=== PATIENT | male | born 1930 | race Caucasian/White ===

== ENCOUNTER 2017-03-02 18:32 | Inpatient (IN) ==
--- NOTE | 2017-03-02 19:02 | Emergency Department Note ---
Lower Extremity Injury HPI - General Chief Complaint: Extremity Injury, Lower Stated Complaint: r hip fx, fall Time Seen by Provider: 03/02/17 18:53 Source: patient, EMS Mode of arrival: EMS Limitations: physical limitation - History of Present Illness HPI Narrative: Patient transferred from outside hospital, [place] Fracture intertrochanteric of the right hip. Therapeutic on Coumadin. No other injury. At baseline chronically on prednisone for COPD. - Related Data Home Medications Medication Instructions Recorded Confirmed Acetaminophen/Diphenhydramine 1 tab PO HSP PRN 03/02/17 03/02/17 [Tylenol Pm] Allopurinol [Zylopriim] 300 mg PO DAILY 03/02/17 03/02/17 Fluticasone Propionate [Flonase] 1 spray NS DAILY 03/02/17 03/02/17 Metoprolol Succinate [Toprol Xl] 25 mg PO HS 03/02/17 03/02/17 Simvastatin [Zocor] 40 mg PO HS 03/02/17 03/02/17 Warfarin [Coumadin] 2.5 mg PO DAILY 03/02/17 03/02/17 predniSONE [Prednisone] 5 mg PO DAILY 03/02/17 03/02/17 Allergies Allergy/AdvReac Type Severity Reaction Status Date / Time Beta-Blockers Allergy Verified 03/02/17 18:39 (Beta-Adrenergic Bloc Niacin Preparations Allergy Verified 03/02/17 18:39 Review of Systems All systems ED: reviewed and negative except as stated. Past Medical History - Past Medical History Attestation: Yes: The following information was validated with the patient. Medical history: Reports: atrial fibrillation (on Coumadin), COPD (steroid dependent), coronary artery disease Surgical history ED: Reports: coronary bypass (CABG), other (prior right femur fracture with osteomyelitis) Family history: Reports: non-contributory - Social History smoking status: Former smoker Physical Exam - General Limitations: physical limitation General appearance: alert, in no apparent distress - Head Head exam: atraumatic - Eye Eye exam: Present: normal appearance - ENT ENT exam: normal exam, mucous membranes moist - Neck Neck exam: Present: normal inspection - Chest Chest inspection: Present: normal inspection - Respiratory Respiratory exam: Present: normal lung sounds bilaterally. Absent: respiratory distress - Cardiovascular Cardiovascular exam: Present: regular rate, irregular rhythm. Absent: systolic murmur - Abdominal Exam Abdominal exam: Present: soft. Absent: tenderness - exam: Present: normal inspection, other ([place] catheter in place) - Extremities Exam Extremities exam: Present: other (shortened right leg; intact right leg neurovascular) - Back Exam Back exam: Present: normal inspection - Neurological Exam Neurological exam: Present: alert, oriented X3 - Psychiatric Psychiatric exam: Present: normal affect Course Vital Signs Temperature 98.1 F 03/02/17 18:33 Pulse Rate 126 H 03/02/17 18:33 Respiratory Rate 24 03/02/17 18:33 Blood Pressure 104/90 03/02/17 18:33 Pulse Oximetry (%) 88 L 03/02/17 18:33 Temperature 98.1 F 03/02/17 18:33 Pulse Rate 126 H 03/02/17 18:33 Respiratory Rate 24 03/02/17 18:33 Blood Pressure 104/90 03/02/17 18:33 Pulse Oximetry (%) 88 L 03/02/17 18:33 Extremity Injury, Lower - Medical Records Medical records reviewed: Yes I reviewed the patient's medical records. labs reviewed from outside, normal CBC, creatinine of 1.5, normal electrolytes, normal albumin; therapeutic INR 2.2 - EKG Data EKG attestation: Yes I reviewed and interpreted this EKG. Rhythm: A. flutter Disposition Clinical Impression: Fracture of hip, History of Coumadin therapy Summary: hospitalist admitting, medically stable Disposition: Xfer As Inpt ([facility]) Condition: Good
[2017-03-02] MEDS ORDERED: HYDROmorphone 2 MG/ML SYRINGE IV PRN ×2 (19:19→20:00)
[2017-03-02] MEDS ORDERED: NALOXONE HCL 0.4 MG/ML VIAL IV PRN ×2 (20:00→21:32)
[2017-03-02] MEDS ORDERED: MAGNESIUM HYDROXIDE 30 ML ORAL.SUSP PO PRN ×2 (20:00→21:32)
[2017-03-02] MEDS ORDERED: ONDANSETRON 4 MG/2 ML VIAL IV PRN ×2 (20:00→21:32)
[2017-03-02] MEDS ORDERED: HYDROcodone/APAP 5/325MG TABLET PO PRN ×2 (20:00→21:32)
[2017-03-02] MEDS ORDERED: FAMOTIDINE/PF 20 MG/2 ML VIAL IV SCH (21:00)
[2017-03-02] MEDS ORDERED: VANCOMYCIN 1,000 MG in 0.9 % SODIUM CHLORIDE 250 ML IV ONE ×2 (21:17→21:32)
[2017-03-02] MEDS ORDERED: VANCOMYCIN PER PHARMACY IV ONE ×2 (21:17→21:32)
[2017-03-02] MEDS ORDERED: DILTIAZEM 25 MG/5 ML VIAL IV ONE ×2 (21:23→21:32)
[2017-03-02] MEDS ORDERED: methylPREDNISolone SOD SUCC 125 MG/2 ML VIAL IV SCH (21:30)
[2017-03-02] MEDS ORDERED: CEFEPIME 2 GM in DEXTROSE 5% IN WATER 50 ML IV SCH (21:30)
[2017-03-02] MEDS ORDERED: LORazepam 2 MG/ML VIAL IV PRN (21:31)
--- NOTE | 2017-03-02 21:41 | Internal Med History&Physical ---
Medical - H&P: HPI Patient information: Note initiated : 03/02/17 at 9:32 pm Service Date, if different from initiated Date: [] Patient: Trey Stock 86 y/o M admitted on 03/02/17 for r hip fx, fall. Chief Complaint: [] History of present illness: Mr. Stock is a 86 year old male with h/o copd, on chr prednisone, CAD s/p CABG 25 yrs ago, Afib/ Flutter on coumadin and toporol presented to outside hospital ER with a mechanical fall. The patient reports that he was changing a bin in his yard, likely moving it to the truck, when he slipped and fell. He was taken to the ER and was noted to have right femur fracture. The patient was then transported to the [facility] ER. His labs were reported to be unremarkable besides creat of 1.5, and HR 125 in flutter which was thought to be due to pain from the fracture. The patient was admitted to medical floors for further management. On my evaluation the patient denies any other complaints, notes chr sob on activity, denies any fever or chills. The patient however clinically appeared tachypenic, and did not answer my questions coherently. The patients oxygen level was log and on RA dropped as low as 82%. We got an ABG and noted his PH 7.29/ 61/53, the exam also showed lee prolonged exp phase, and lee wheezing with decreased air entry. Outside labs review show that he has wbc count of 15, h/u 14.8 45, plat 230, creat 1.5BUN 22, GFR 52 The patient x ray chest done shows lee infiltratres, as well as rigut upper lobe infiltrate. No previous X ray to compare. Blood cultures drawn, IV antibiotics started, procalcitonin started. Repeat labs ordered. I do not think the patient is stable to under go any procedure at this time, will discuss with Anesthesia regarding his periop risk in AM. The patient otherwise does not endorse any chest pains, dizziness, headache, loss of concousness or injury to the head. Review of systems: CONSTITUTIONAL: No weight loss, fever, chills, weakness or fatigue. HEENT: Eyes: No visual loss, blurred vision, double vision or yellow sclerae. Ears, Nose, Throat: No hearing loss, sneezing, congestion, runny nose or sore throat. SKIN: No rash or itching. CARDIOVASCULAR: No chest pain, chest pressure or chest discomfort. No palpitations or edema. RESPIRATORY: chr shortness of breath GASTROINTESTINAL: No nausea, vomiting or diarrhea or constipation. No abdominal pain or blood in stools No Olivia. GENITOURINARY: Denies Burning on urination. Blood in urine, or foul smelling urine NEUROLOGICAL: No headache, dizziness, syncope, paralysis, tremors, numbness or tingling in the extremities. No change in bowel or bladder control. MUSCULOSKELETAL: No muscle, back pain, joint pain or stiffness. HEMATOLOGIC: No bleeding or bruising. No enlarged nodes PSYCHIATRIC: No depression or anxiety. ENDOCRINOLOGIC: No reports of sweating, cold or heat intolerance. No polyuria or polydipsia. ALLERGIES: No hives, eczema or rhinitis. Skin: No rash, no jaundice, cyanosis or pallor. Medical - H&P: PMH Medical history: COPD HTN HLD CAD AFib Surgical history: CABG 25 yrs ago Pertinent family history: unable to review, due to non coherent answers at times. Social history: lives with ex smoker no etoh no recreational drugs. Medical - H&P: Meds Home Medications Medication Instructions Recorded Confirmed Type Acetaminophen/Diphenhydramine 1 tab PO HSP PRN 03/02/17 03/02/17 History [Tylenol Pm] Allopurinol [Zylopriim] 300 mg PO DAILY 03/02/17 03/02/17 History Fluticasone Propionate [Flonase] 1 spray NS DAILY 03/02/17 03/02/17 History Metoprolol Succinate [Toprol Xl] 25 mg PO HS 03/02/17 03/02/17 History Simvastatin [Zocor] 40 mg PO HS 03/02/17 03/02/17 History Warfarin [Coumadin] 2.5 mg PO DAILY 03/02/17 03/02/17 History predniSONE [Prednisone] 5 mg PO DAILY 03/02/17 03/02/17 History Allergies Allergy/AdvReac Type Severity Reaction Status Date / Time Beta-Blockers Allergy Verified 03/02/17 18:39 (Beta-Adrenergic Bloc Niacin Preparations Allergy Verified 03/02/17 18:39 Medical - H&P: Exam - Constitutional Vitals: Temp Pulse Resp BP Pulse Ox 98.0 F 125 H 24 117/83 95 03/02/17 20:00 03/02/17 20:10 03/02/17 20:00 03/02/17 20:10 03/02/17 20:10 Exam: GENERAL: The patient is a well-developed, well-nourished in mild distress. Is alert and oriented x2 VITAL SIGNS: Reviewed and as noted elsewhere. HEENT: Head is normocephalic and atraumatic. Extraocular muscles are intact. Pupils are equal, round, and reactive to light. Nares appeared normal. Mouth appears any without lesions. Mucous membranes are moist. NECK: Normal to inspection, Supple, No lymphadenopathy or thyromegaly. LUNGS: Air entry equal on both sides, but diminished, prolonged exp phase, lee exp wheezing noted. HEART: tachycardic rate, regular rhythm (flutter) , S1 and S2 heard, No Gross murmur heard. ABDOMEN: Soft, nontender, and nondistended. Positive bowel sounds. No hepatosplenomegaly was noted. EXTREMITIES: No cyanosis, clubbing, rash, lesions or edema. NEUROLOGIC: Cranial nerves II through XII are grossly intact. Motor and Sensory System Grossly Intact PSYCHIATRIC: Normal affect, Normal Mood. Appropriate Behavior. SKIN: No ulceration or wounds noted, No jaundice, No rash noted. Medical - H&P: Reslt - Labs Labs: labs from outside facility reviewd, ABG reviewed and noted in hpi shows acute resp acidosis. chest x ray reviewed by me, lee infiltraets in lower lobes, right upper lobe infiltrate. Medical - H&P: A/P - Narrative A/P Narrative: a/p Acute hypoxic Hypercapnic resp failure: Due to copd exacerbation, likely PNA, old X ray not available to compare. BIPAP for now. monitor abg. Pneumonia: high risk for pseudomonas given his use of prednisone, IV vancomycin and Cefepime for now, Blood cultures, mycoplasma, urine legionella, sputume cultures. COPD exacerbation: IV steroids, Duonebs q 4 hrs, BIPAP treatment. Atrial Flutter: BP stable, trial of IV cardizem to see if it lowers HR, If pt drops bp, will use amiodarone. Acute kidney injury: Creat is 1.5, monitor for now, closely watch urine output, IV fluids if patient able to tolerate. Anticoagulation: On coumadin, dose held, INR therapeutic, will give vit K Right hip fracture: Ortho following, will need operative intervention. Will discuss risk with anesthesia given his copd/ pna status. DVT : will start on hep once INR is subtherapeutic Diet Cardiac Code full Try to obtain old records from his provider Medical - H&P: Qual - VTE Deep Vein Thrombosis/Pulmonary Embolism Present on Admission: No
[2017-03-02] MEDS ORDERED: CEFEPIME 1 GM VIAL ONE (21:43)
[2017-03-02] MEDS ORDERED: methylPREDNISolone SOD SUCC 125 MG/2 ML VIAL ONE (21:43)
[2017-03-02] MEDS: IPRATROPIUM/ALBUTEROL 3 ML AMPUL.NEB NEB SCH (21:48)
[2017-03-02] MEDS ORDERED: VANCOMYCIN 500 MG VIAL ONE (22:03)
[2017-03-02] MEDS ORDERED: 0.9 % SODIUM CHLORIDE 500 ML IV ONE (22:11)
[2017-03-02] MEDS: methylPREDNISolone SOD SUCC 125 MG/2 ML VIAL IV SCH (22:19)
[2017-03-02 22:28] LABS: Basophils # (Auto) 0.1 K/mcL (0.0-0.3); Basophils % (Auto) 0.3 % (0.0-2.0); Eosinophils # (Auto) 0.1 K/mcL (0.0-0.7); Eosinophils % (Auto) 0.3 % (0.0-7.0); Granulocytes % (Auto) 84.6 % (38.0-78.0); Lymphocytes # (Auto) 1.2 K/mcL (1.5-4.8); Lymphocytes % (Auto) 3.9 % (15.5-49.0); Mean Cell Volume 97.3 fL (80.0-100.0); Mean Corpuscular HGB Conc 31.8 g/dL (31.0-36.0); Mean Corpuscular Hemoglobin 30.9 pg (26.0-34.0); Monocytes # (Auto) 3.4 K/mcL (0.1-0.9); Monocytes % (Auto) 10.9 % (1.0-12.0); Platelet Count 242 K/mcL (140-440); Red Cell Distribution Width 13.8 % (11.5-14.5)
[2017-03-02 22:37] LABS: ALT/SGPT 24 U/l (0-40); Albumin 4.4 gm/dL (3.2-5.2); Albumin/Globulin Ratio 1.8 (1.0-2.3); Alkaline Phosphatase 77 U/L (39-117); Bilirubin,Direct 0.2 mg/dL (0.0-0.3); Blood Urea Nitrogen 24 mg/dl (8-23); Gamma Glutamyl Transpeptidase 58 U/L (8-61); Magnesium 1.4 mg/dL (1.6-2.5); Uric Acid 5.3 mg/dL (2.5-8.0)
[2017-03-02] MEDS ORDERED: MAGNESIUM SULFATE 2 GM/50 ML BAG IV ONE ×2 (22:43→23:02)
[2017-03-02] MEDS: SIMVASTATIN 40 MG TABLET PO SCH (22:54)
[2017-03-02] MEDS: CEFEPIME 2 GM in DEXTROSE 5% IN WATER 50 ML IV SCH (22:54)
[2017-03-02] MEDS ORDERED: IPRATROPIUM/ALBUTEROL 3 ML AMPUL.NEB NEB SCH (23:00)
[2017-03-02] MEDS: 0.9 % SODIUM CHLORIDE 1,000 ML IV SCH (23:01)
[2017-03-02] MEDS: FAMOTIDINE/PF 20 MG/2 ML VIAL IV SCH (23:07)
[2017-03-02] MEDS: LORazepam 2 MG/ML VIAL IV PRN (23:14)
[2017-03-02] MEDS ORDERED: 0.9 % SODIUM CHLORIDE 1,000 ML IV ONE (23:46)
[2017-03-03] MEDS: HYDROmorphone 2 MG/ML SYRINGE IV PRN ×7 (00:12→22:29)
[2017-03-03] MEDS: IPRATROPIUM/ALBUTEROL 3 ML AMPUL.NEB NEB SCH ×6 (03:15→23:16)
[2017-03-03] MEDS: methylPREDNISolone SOD SUCC 125 MG/2 ML VIAL IV SCH ×3 (05:41→21:58)
[2017-03-03 06:18] LABS: Basophils # (Auto) 0 K/mcL (0.0-0.3); Basophils % (Auto) 0 % (0.0-2.0); Eosinophils # (Auto) 0.1 K/mcL (0.0-0.7); Eosinophils % (Auto) 0.4 % (0.0-7.0); Granulocytes % (Auto) 93.5 % (38.0-78.0); Lymphocytes # (Auto) 0.7 K/mcL (1.5-4.8); Lymphocytes % (Auto) 2.5 % (15.5-49.0); Mean Cell Volume 95.7 fL (80.0-100.0); Mean Corpuscular HGB Conc 33.3 g/dL (31.0-36.0); Mean Corpuscular Hemoglobin 31.9 pg (26.0-34.0); Monocytes % (Auto) 3.6 % (1.0-12.0); Platelet Count 203 K/mcL (140-440); RBC 4.79 M/mcL (4.50-5.90); Red Cell Distribution Width 13.4 % (11.5-14.5)
[2017-03-03 06:29] LABS: ALT/SGPT 21 U/l (0-40); Albumin 3.7 gm/dL (3.2-5.2); Albumin/Globulin Ratio 1.4 (1.0-2.3); Alkaline Phosphatase 70 U/L (39-117); Bilirubin,Direct < 0.2 mg/dL (0.0-0.3); Blood Urea Nitrogen 28 mg/dl (8-23); Gamma Glutamyl Transpeptidase 56 U/L (8-61); Magnesium 2.2 mg/dL (1.6-2.5); Uric Acid 5.4 mg/dL (2.5-8.0)
[2017-03-03] MEDS ORDERED: FUROSEMIDE 40 MG/4 ML VIAL IV ONE ×2 (06:46→17:34)
[2017-03-03] MEDS ORDERED: DEXTROSE 50% 50 ML VIAL IV ONE (06:51)
[2017-03-03] MEDS ORDERED: SODIUM POLYSTYRENE SULFONATE 15 GM/60 ML SUSPENSION PO ONE (06:51)
[2017-03-03] MEDS ORDERED: CALCIUM GLUCONATE 4.65 MEQ in DEXTROSE 5% IN WATER 50 ML IV ONE (06:52)
[2017-03-03] MEDS ORDERED: INSULIN REGULAR, HUMAN 1 UNIT/0.01 ML UNIT IV ONE (06:52)
[2017-03-03] MEDS ORDERED: 0.9 % SODIUM CHLORIDE 500 ML IV ONE ×2 (06:55→07:57)
[2017-03-03] MEDS ORDERED: VANCOMYCIN PER PHARMACY IV SCH (07:15)
--- NOTE | 2017-03-03 07:20 | XRay Report ---
CLINICAL INFORMATION: COPD COMPARISON: None. FINDINGS: The heart is within limits of normal in size. Mediastinum is unremarkable. Pulmonary vessels are slightly distended. COPD changes noted. There is moderate interstitial disease in the right mid and lower lung and the left lower lung. IMPRESSION: Moderate interstitial disease in the right mid and lower and left lower lung.Suspect edema from atypical CHF. Superimposed infiltrate is also possible. If there is history and exam support for CHF, consider diuretic trial and repeat two view upright chest x-ray to reexamine the lung bases to assess clearance of atypical edema. Obviously , if this pattern persists, after diuresis, that it likely represents infiltrate. Interpreted and Authenticated by: Joe Lafleur 03/03/17
[2017-03-03 07:47] LABS: Blood Urea Nitrogen 31 mg/dl (8-23)
[2017-03-03] MEDS: 0.9 % SODIUM CHLORIDE 1,000 ML IV SCH ×5 (08:22→20:07)
[2017-03-03] MEDS ORDERED: ALLOPURINOL 300 MG TABLET PO SCH (09:00)
[2017-03-03] MEDS ORDERED: FLUTICASONE PROPIONATE SPRAY.NAS NS SCH (09:00)
[2017-03-03] MEDS: CEFEPIME 2 GM in DEXTROSE 5% IN WATER 50 ML IV SCH ×2 (09:01→20:54)
[2017-03-03] MEDS: FAMOTIDINE/PF 20 MG/2 ML VIAL IV SCH ×2 (09:01→20:54)
[2017-03-03] MEDS: FLUTICASONE PROPIONATE SPRAY.NAS NS SCH ×2 (09:01→10:23)
[2017-03-03] MEDS: ALLOPURINOL 300 MG TABLET PO SCH ×2 (09:02→10:24)
--- NOTE | 2017-03-03 10:24 | Internal Med Progress Note ---
Medical - PN: Subj Patient information: Note initiated : 03/03/17 at 10:21 am Service Date, if different from initiated Date: [] Patient: Trey Stock a 86 y/o M admitted on 03/02/17 for r hip fx, fall. Chief Complaint: [] Interval history: Mr. Stock is a 86 year old male with h/o copd, on chr prednisone, CAD s/p CABG 25 yrs ago, Afib/ Flutter on coumadin and toporol presented to outside hospital ER with a mechanical fall. The patient reports that he was changing a bin in his yard, likely moving it to the truck, when he slipped and fell. He was taken to the ER and was noted to have right femur fracture. The patient was then transported to the [facility] ER. His labs were reported to be unremarkable besides creat of 1.5, and HR 125 in flutter which was thought to be due to pain from the fracture. The patient was admitted to medical floors for further management. On my evaluation the patient denies any other complaints, notes chr sob on activity, denies any fever or chills. The patient however clinically appeared tachypenic, and did not answer my questions coherently. The patients oxygen level was log and on RA dropped as low as 82%. We got an ABG and noted his PH 7.29/ 61/53, the exam also showed lee prolonged exp phase, and lee wheezing with decreased air entry. Patient xray suggestive of pna, ? CHF, admitted to MICU for acute resp failure, copd exacerbation. 03/03 : Pt seen examined, overnight events noted. Pt remains on BIPAP, with good tidal volume, mental status ok, but patient still is acidotic with co2 retention. His ABG this AM Was worse than last night, changes to bipap made. pt also noted to have oligouria, worsening kidney function and hyperkalemia. Nephrology consulted, renal usg ordered. Pt remains tachycardic in flutter. the patient labs show worsening lecocytosis 15 K in [place], 30K last night, He was on IV vancom and cefepime, MRSA screen was neg, vanco stopped. Zithromax added for atypical coverage given h/o copd. Pt cultures are neg so far. Not cleared for surgery given acute resp failure. was able to review old echo and old notes, normal lvef noted, and he seems to be intermittently dependent on oxygen from his Copd stand point. Pertinent ROS: Denies headache, dizziness Denies chest pain, palpitations Denies cough or shortness of breath (pt denies any symptoms, on bipap) Denies abdominal pain, nausea or vomiting. - Constitutional Vitals: Vital Signs Temp Pulse Resp BP Pulse Ox 98.8 F 106 H 15 111/71 92 03/03/17 07:00 03/03/17 09:48 03/03/17 10:00 03/03/17 10:00 03/03/17 10:00 Period Temp Pulse Resp BP Sys/Gomez Pulse Ox Last 24 Hr 97.6 F-98.8 F 82-129 9-25 93-133/56-99 76-96 Intake and Output 03/02/17 03/03/17 03/03/17 21:59 05:59 13:59 Intake Total 1850 / 1850 620 / 620 Output Total 275 / 275 235 / 235 Balance 1575 / 1575 385 / 385 Weight 193 lb 8 oz Intake & Output: Intake & Output 03/02/17 03/03/17 03/03/17 21:59 05:59 13:59 Intake Total 1850 / 1850 620 / 620 Output Total 275 / 275 235 / 235 Balance 1575 / 1575 385 / 385 Weight 193 lb 8 oz Intake: IV 1550 / 1550 560 / 560 Sodium Chloride 0.9% 1, 1000 / 1000 000 ml @ Wide Open IV BOLUS ONE Rx#:[id number] Sodium Chloride 0.9% 500 500 / 500 500 / 500 ml @ Wide Open IV BOLUS ONE Rx#:[id number] Calcium Gluconate 4.65 60 / 60 Meq In Dextrose 5% in Water 50 ml @ 100 mls/hr IV ONCE ONE Rx#:[id number] MAGNESIUM SULFATE 2 gm In 50 / 50 50 ml As IV .STK-MED ONE Rx#:[id number] Oral 60 / 60 IV - Manual Only 300 / 300 Output: Urine Catheter Amount 275 / 275 235 / 235 Exam: Constitutional; Afebrile, cooperative, alert, not in distress. Eyes- No icterus, , No periorbital swelling Ears- Ext ear normal, hearing normal to conversation. Neck- Midline trachea, supple Respiratory system: Air Entry equal on both sides, lee exp mild wheezing, prolonged exp phase. CVS- Rate tachycardic, rhythm regular, Abdomen- Soft nontender abdomen, no organomegaly, no tenderness, no guarding or rigidity, INDIRECT SALES EXEC- AOOx2, moving all extremities, no gross focal deficit noted. Medical - PN: Obj Da - Labs CBC & Chem 7: 03/03/17 04:15 03/03/17 06:46 Labs: Abnormal Lab Results 03/03/17 03/03/17 03/03/17 06:46 04:15 04:15 WBC Gran % Lymph % (Auto) Gran # Lymph # [place] # PT 24.2 H INR 2.1 H VBG Lactic Acid Sodium 132 L Potassium 5.8 H 6.3 H* Chloride Carbon Dioxide 21 L 18 L Anion Gap BUN 31 H 28 H Creatinine 1.8 H 1.7 H Glucose 172 H 151 H Calcium 8.3 L 8.4 L Magnesium Lactate Dehydrogenase 304 H Triglycerides 337 H 03/03/17 03/02/17 03/02/17 04:15 22:35 21:20 WBC 26.4 H Gran % 93.5 H Lymph % (Auto) 2.5 L Gran # 24.6 H Lymph # 0.7 L Mclean # 1.0 H PT INR VBG Lactic Acid 3.4 H Sodium Potassium 5.3 H Chloride 92 L Carbon Dioxide Anion Gap 17.0 H BUN 24 H Creatinine 1.5 H Glucose 155 H Calcium Magnesium 1.4 L Lactate Dehydrogenase 339 H Triglycerides 430 H 03/02/17 03/02/17 21:20 21:20 WBC 31.0 H* Gran % 84.6 H Lymph % (Auto) 3.9 L Gran # 26.2 H Lymph # 1.2 L Mclean # 3.4 H PT 23.8 H INR 2.1 H VBG Lactic Acid Sodium Potassium Chloride Carbon Dioxide Anion Gap BUN Creatinine Glucose Calcium Magnesium Lactate Dehydrogenase Triglycerides Meds: Medications Acetaminophen/Hydrocodone Bitart ([place] 5/325mg) 1 tab PO Q4HP PRN PRN Reason: Pain Albuterol/Ipratropium (Duoneb) 3 ml NEB Q4HRT [facility] Last Admin: 03/03/17 06:45 Dose: 3 ml Allopurinol (Zylopriim) 300 mg PO DAILY [facility] Last Admin: 03/03/17 09:02 Dose: 300 mg Famotidine (Pepcid) 20 mg IV Q12 [facility] Last Admin: 03/03/17 09:01 Dose: 20 mg Fluticasone Propionate (Flonase) 1 spray NS DAILY [facility] Last Admin: 03/03/17 09:01 Dose: 1 spr Hydromorphone HCl (Dilaudid) 0.5 mg IV Q1HP PRN PRN Reason: Pain Last Admin: 03/03/17 08:43 Dose: 0.5 mg Cefepime HCl 2 gm/ Dextrose 50 mls @ 100 mls/hr IV Q12H [facility] Last Admin: 03/03/17 09:01 Dose: 100 mls/hr Sodium Chloride (Sodium Chloride 0.9%) 1,000 mls @ 100 mls/hr IV .Q10H [facility] Last Admin: 03/03/17 08:22 Dose: Not Given Azithromycin 500 mg/ Dextrose 250 mls @ 250 mls/hr IV Q24H [facility] Stop: 03/05/17 11:29 Lorazepam (Ativan) 0.5 mg IV Q4-6HP PRN PRN Reason: ANXIETY/SEDATION Last Admin: 03/02/17 23:14 Dose: 0.5 mg Magnesium Hydroxide (Milk Of Magnesia) 30 ml PO DAILYP PRN PRN Reason: Constipation Methylprednisolone Sodium Succinate (Solu-Medrol) 62.5 mg IV Q8 [facility] Last Admin: 03/03/17 05:41 Dose: 62.5 mg Naloxone HCl (Narcan) 0.1 mg IV Q2MIN PRN PRN Reason: Opiate Reversal Ondansetron HCl (Zofran) 4 mg IV Q4HP PRN PRN Reason: Nausea And Vomiting Simvastatin (Zocor) 40 mg PO HS [facility] Last Admin: 03/02/17 22:54 Dose: Not Given Medical - PN: A/P - Time Spent With Patient Total time spent is greater than 50% in coordination of care (as documented) at patient's floor/unit and/or counseling patient: - Narrative A/P Narrative: a/p Acute hypoxic Hypercapnic resp failure: Due to copd exacerbation, PNA ( elevated wbc, procalcitonin high) , old X ray not available to compare. continue bipap, increase settings to 14/8 Fio2 30% Pneumonia:Cultures neg, MRSA screen neg, d/c vanco, continue cefepime, start zithromax in light of copd. COPD exacerbation: IV steroids, Duonebs q 4 hrs, BIPAP treatment. and zithromax. Hypomagnesemia: replace Atrial Flutter: BP stable, trial of IV cardizem helped, he did drop his bp somewhat but went back up again, monitor HR, repeat dose of cardizem, If BP drops again, start on amiodarone. Acute kidney injury: Creat is 1.8, with decreased urine output, hyperkalemia, IV fluids ongoing, Nephrology consulted, renal usg ordered. Hyperkalemia: Medically treated, Nephrology consulted, Kidneys responding to lasix. Anticoagulation: On coumadin, dose held, INR therapeutic, hold off on coumadin. Right hip fracture: Ortho following, will need operative intervention, pt will need to be stable first. . DVT : will start on hep once INR is subtherapeutic Diet Cardiac Code full Spent > 60mins providing critical care, managing bipap, reviewing ABG, Tele, adjusting medications. Medical - PN: Qual - VTE Deep Vein Thrombosis/Pulmonary Embolism Present on Admission: No
[2017-03-03] MEDS: LORazepam 2 MG/ML VIAL IV PRN ×3 (10:27→19:15)
[2017-03-03] MEDS: AZITHROMYCIN 500 MG in DEXTROSE 5% IN WATER 250 ML IV SCH (11:05)
[2017-03-03] MEDS ORDERED: 0.9 % SODIUM CHLORIDE 1,000 ML IV ONE (11:14)
[2017-03-03 11:21] LABS: ALT/SGPT 19 U/l (0-40); Albumin 3.5 gm/dL (3.2-5.2); Albumin/Globulin Ratio 1.3 (1.0-2.3); Alkaline Phosphatase 62 U/L (39-117); Bilirubin,Direct < 0.2 mg/dL (0.0-0.3); Blood Urea Nitrogen 30 mg/dl (8-23); Gamma Glutamyl Transpeptidase 49 U/L (8-61); Magnesium 1.9 mg/dL (1.6-2.5); Uric Acid 5.3 mg/dL (2.5-8.0)
--- NOTE | 2017-03-03 12:16 | XRay Report ---
CLINICAL INFORMATION: Shortness of breath COMPARISON: 03/02/2017 FINDINGS: Moderate cardiomegaly is unchanged. Sternotomy changes noted. Mediastinum is unremarkable. Pulmonary vessels have decreased and now only slightly distended. Moderate interstitial disease in the right mid and both lower lungs have decreased modestly. IMPRESSION: Decrease in interstitial disease in the right mid and both lower lung liu since yesterday with decreasing pulmonary vascular congestion most compatible with resolving atypical CHF Interpreted and Authenticated by: Joe Lafleur 03/03/17
--- NOTE | 2017-03-03 12:24 | XRay Report ---
CLINICAL INFORMATION: Hip fracture COMPARISON: 03/02/2017 FINDINGS: A mildly comminuted nondisplaced acute intertrochanteric fracture the right hip. Both SI and hip joint showing mild degenerative change. Urinary bladder catheter tip overlies the expected location central bladder. No soft tissue abnormalities IMPRESSION: Minimally comminuted, nondisplaced acute intertrochanteric fracture - right hip Interpreted and Authenticated by: Joe Lafleur 03/03/17
--- NOTE | 2017-03-03 13:14 | Ultrasound Report ---
CLINICAL INFORMATION: Renal failure COMPARISON: None. FINDINGS: Both kidneys are normal in size, position and configuration: The right is 10 x 6 cm as the left is 10 x 5.7 cm. Parenchyma is moderately echogenic and there is slight thinning of the renal cortex compatible with medical renal disease. No focal solid/cystic lesions or evidence of stone and no hydronephrosis. Arterial blood flow is grossly normal on color spectral Doppler [place] catheter in satisfactory position. No gross abnormality seen in the only partially filled urinary bladder IMPRESSION: Increased parenchymal echotexture compatible with medical renal disease. Interpreted and Authenticated by: Joe Lafleur 03/03/17
[2017-03-03 16:54] LABS: Vancomycin,Random 9.2 ug/ml
[2017-03-03] MEDS ORDERED: DILTIAZEM 25 MG/5 ML VIAL IV ONE (16:55)
--- NOTE | 2017-03-03 16:57 | Nephrology Consult Note ---
History of Present Illness - Reason for Consult Patient information: Note initiated : 03/03/17 at 4:54 pm Service Date, if different from initiated Date: [] Patient: Trey Stock 86 y/o M admitted on 03/02/17 for Right Hip Fracture, Fall. Chief Complaint: [] Consult date: 03/03/17 acute renal failure, hyperkalemia Requesting physician: Sanju Forman - Chief Complaint hip fracture - History of Present Illness Mr Stock is a 86 y/o white male with PMH of HTN, Atrial flutter, COPD and other medical issues who is admitted with right hip fracture Patient on admission was noted to have elevated white count, possible PNA, sepsis, acute hypoxic hypercarbic respiratory failure with acute renal failure and hyperkalemia. Given his acute renal failure and hyperkalemia renal is consulted Patient was apparently sick for 2 weeks prior to hospitalisation with cough, confusion. He had a fall at home trying to move garbage can and sustained right hip fracture and hence transferred here for further management patient was unable to provide clear history and most of the details obtained from review of medical records Patient is noted to have elevated white count, elevated lactate level, abnormal renal function and persistent acidosis he has been oliguric as well he is been managed with IVF, antibiotics and Bipap ventilation Review of Systems ROS unobtainable: due to mental status, other (on Bipap ventilation) All systems PM: reviewed and no additional remarkable complaints except as stated Past History Past medical history: HTN dyslipidemia COPD on prednisone CAD Aflutter on coumadin Past surgical history: s/p CABG Past family history: Not pertinent Past social history: lives with family in [place] no current addictions Medications and Allergies Home Medications Medication Instructions Recorded Confirmed Type Acetaminophen/Diphenhydramine 1 tab PO HSP PRN 03/02/17 03/02/17 History [Tylenol Pm] Allopurinol [Zylopriim] 300 mg PO DAILY 03/02/17 03/02/17 History Fluticasone Propionate [Flonase] 1 spray NS DAILY 03/02/17 03/02/17 History Metoprolol Succinate [Toprol Xl] 25 mg PO HS 03/02/17 03/02/17 History Simvastatin [Zocor] 40 mg PO HS 03/02/17 03/02/17 History Warfarin [Coumadin] 2.5 mg PO DAILY 03/02/17 03/02/17 History predniSONE [Prednisone] 5 mg PO DAILY 03/02/17 03/02/17 History Allergies Allergy/AdvReac Type Severity Reaction Status Date / Time Beta-Blockers Allergy Verified 03/02/17 18:39 (Beta-Adrenergic Bloc Niacin Preparations Allergy Verified 03/02/17 18:39 Exam - Vital Signs Vital signs: Temp Pulse Resp BP Pulse Ox 98.2 F 128 H 13 124/72 96 03/03/17 16:00 03/03/17 16:09 03/03/17 16:09 03/03/17 16:04 03/03/17 16:09 - General Appearance General appearance: appears started age, obese EENT: mucous membranes moist Neck: no JVD Respiratory: rales Cardiology: no rub, no edema, irregular rhythm Gastrointestinal: no tenderness, no guarding Integumentary: warm and dry Neurologic: no asterixis, confused Musculoskeletal: no erythema, no cyanosis Results - Lab Results 03/03/17 04:15 03/03/17 09:37 Most recent lab results Calcium 8.2 mg/dl (8.6-10.4) L 03/03/17 09:37 Phosphorus 4.1 mg/dL (2.7-4.5) 03/03/17 09:37 Magnesium 1.9 mg/dL (1.6-2.5) 03/03/17 09:37 Assessment and Plan (1) Acute renal failure Patient with acute renal failure s.creatinine 1.5-1.7 patient is oliguric also has hyperkalemia which improved with treatment persistent acidosis (metabolic and respiratory) metabolic from sepsis and renal failure agree with IV fluids, however would be cautious and monitor closely for signs of fluid overload he has received IV lasix this am, would repeat another dose if needed no urgent need for dialysis please dose meds to renal function avoid nephrotoxic medications monitor I/O, renal function Will follow closely Status: Acute
[2017-03-03 18:31] LABS: Basophils # (Auto) 0 K/mcL (0.0-0.3); Basophils % (Auto) 0 % (0.0-2.0); Eosinophils # (Auto) 0 K/mcL (0.0-0.7); Eosinophils % (Auto) 0 % (0.0-7.0); Granulocytes % (Auto) 94.4 % (38.0-78.0); Lymphocytes # (Auto) 0.4 K/mcL (1.5-4.8); Lymphocytes % (Auto) 2.1 % (15.5-49.0); Mean Cell Volume 98.3 fL (80.0-100.0); Mean Corpuscular HGB Conc 32.1 g/dL (31.0-36.0); Mean Corpuscular Hemoglobin 31.6 pg (26.0-34.0); Monocytes # (Auto) 0.7 K/mcL (0.1-0.9); Monocytes % (Auto) 3.5 % (1.0-12.0); Platelet Count 165 K/mcL (140-440); RBC 3.97 M/mcL (4.50-5.90); Red Cell Distribution Width 14.2 % (11.5-14.5)
[2017-03-03 18:44] LABS: Blood Urea Nitrogen 35 mg/dl (8-23); Magnesium 1.8 mg/dL (1.6-2.5)
[2017-03-03 19:12] LABS: Appearance,Urine HAZY; Bacteria,Urine 0 /hpf (0); Bilirubin,Urine NEG (NEG); Color,Urine YELLOW; Glucose,Urine (UA) NEGATIVE (NEG); Leukocyte Esterase,Urine 75 /uL (NEG); Mucus,Urine FEW /hpf (0); Nitrate,Urine NEG (NEG); Protein,Urine NEG (NEG); Specific Gravity,Urine 1.014 (1.000-1.035); Urine Blood >=1.0 mg/dL (<0.03); Urine Hyaline Cast 4 /lpf (0-2); Urine RBC 108 /hpf (0-1); Urine Squamous Epithelial Cell 0 /hpf (0-4); Urine Transitional Epi Cells < 1 /hpf (0-2); Urine WBC 13 /hpf (0-4); Urobilinogen,Urine NEG (NEG)
[2017-03-03] MEDS: METOPROLOL TARTRATE 5 MG/5 ML VIAL IV SCH ×3 (20:08→20:54)
[2017-03-03] MEDS: SIMVASTATIN 40 MG TABLET PO SCH (20:55)
[2017-03-03] MEDS ORDERED: SIMVASTATIN 40 MG TABLET PO SCH (21:00)
[2017-03-04] MEDS: HYDROmorphone 2 MG/ML SYRINGE IV PRN ×7 (01:47→18:56)
[2017-03-04] MEDS: IPRATROPIUM/ALBUTEROL 3 ML AMPUL.NEB NEB SCH ×6 (02:57→23:05)
[2017-03-04] MEDS: LORazepam 2 MG/ML VIAL IV PRN (03:45)
[2017-03-04 05:13] LABS: Basophils # (Auto) 0 K/mcL (0.0-0.3); Basophils % (Auto) 0 % (0.0-2.0); Eosinophils # (Auto) 0 K/mcL (0.0-0.7); Eosinophils % (Auto) 0 % (0.0-7.0); Granulocytes % (Auto) 93.4 % (38.0-78.0); Lymphocytes # (Auto) 0.5 K/mcL (1.5-4.8); Lymphocytes % (Auto) 2.5 % (15.5-49.0); Mean Cell Volume 97.2 fL (80.0-100.0); Mean Corpuscular Hemoglobin 31.1 pg (26.0-34.0); Monocytes # (Auto) 0.9 K/mcL (0.1-0.9); Monocytes % (Auto) 4.1 % (1.0-12.0); Platelet Count 144 K/mcL (140-440); RBC 3.92 M/mcL (4.50-5.90); Red Cell Distribution Width 14.1 % (11.5-14.5)
[2017-03-04 05:28] LABS: ALT/SGPT 15 U/l (0-40); Albumin 3.2 gm/dL (3.2-5.2); Albumin/Globulin Ratio 1.2 (1.0-2.3); Alkaline Phosphatase 49 U/L (39-117); Bilirubin,Direct < 0.2 mg/dL (0.0-0.3); Blood Urea Nitrogen 41 mg/dl (8-23); Gamma Glutamyl Transpeptidase 40 U/L (8-61); Uric Acid 5.6 mg/dL (2.5-8.0)
[2017-03-04] MEDS: methylPREDNISolone SOD SUCC 125 MG/2 ML VIAL IV SCH ×3 (06:02→22:00)
--- NOTE | 2017-03-04 06:46 | Internal Med Progress Note ---
Medical - PN: Subj Patient information: Note initiated : 03/04/17 at 6:37 am Service Date, if different from initiated Date: [] Patient: Trey Stock 86 y/o M admitted on 03/02/17 for Right Hip Fracture, Fall. Chief Complaint: [] Interval history: Mr. Stock is a 86 year old male with h/o copd, on chr prednisone, CAD s/p CABG 25 yrs ago, Afib/ Flutter on coumadin and toporol presented to outside hospital ER with a mechanical fall. The patient reports that he was changing a bin in his yard, likely moving it to the truck, when he slipped and fell. He was taken to the ER and was noted to have right femur fracture. The patient was then transported to the [facility] ER. His labs were reported to be unremarkable besides creat of 1.5, and HR 125 in flutter which was thought to be due to pain from the fracture. The patient was admitted to medical floors for further management. On my evaluation the patient denies any other complaints, notes chr sob on activity, denies any fever or chills. The patient however clinically appeared tachypenic, and did not answer my questions coherently. The patients oxygen level was log and on RA dropped as low as 82%. We got an ABG and noted his PH 7.29/ 61/53, the exam also showed lee prolonged exp phase, and lee wheezing with decreased air entry. Patient xray suggestive of pna, ? CHF, admitted to MICU for acute resp failure, copd exacerbation. 03/03 : Pt seen examined, overnight events noted. Pt remains on BIPAP, with good tidal volume, mental status ok, but patient still is acidotic with co2 retention. His ABG this AM Was worse than last night, changes to bipap made. pt also noted to have oligouria, worsening kidney function and hyperkalemia. Nephrology consulted, renal usg ordered. Pt remains tachycardic in flutter. the patient labs show worsening lecocytosis 15 K in [place], 30K last night, He was on IV vancom and cefepime, MRSA screen was neg, vanco stopped. Zithromax added for atypical coverage given h/o copd. Pt cultures are neg so far. Not cleared for surgery given acute resp failure. was able to review old echo and old notes, normal lvef noted, and he seems to be intermittently dependent on oxygen from his Copd stand point. 5/3 Pt seen examined, was restless in the night with response to dialudid and ativan, sleeping comfortably this AM, labs reviewed, WBC mildly increased, lactate 2.2, creat 1.8, BUN 41, K 5.2, Urine output was good yesterday evening but tapering down again. The patient has lee wheezing and poor air movement. ABG / Mixed gas shows ph of 7.23/ 57 HR mildly tachycardic and responded well to metoprolol 5mg x 3, BP remains stable. Remains on bipap, settings advanced to 18/10, Fio2 32%. I reviewed his case with his family, explained to them the poor prognosis given age With regards to his femur fracture, he is not yet ok to undergo surgery ,given his acute copd exacerbation. His X ray chest is being reported as CHF however the patient does not have edema feet, clinically was not grossly fluid overloaded, He also has elevated Procalcitonin, which would all favor a pneumonia like picture, likely in conjunction with copd and mild chf. Pertinent ROS: unable, patient sleeping after ativan and dilaudid. Was agitated overnight. - Constitutional Vitals: Vital Signs Temp Pulse Resp BP Pulse Ox 97.6 F 109 H 11 L 120/67 96 03/04/17 00:00 03/04/17 05:10 03/04/17 06:00 03/04/17 06:00 03/04/17 06:00 Period Temp Pulse Resp BP Sys/Gomez Pulse Ox Last 24 Hr 97.6 F-98.8 F 58-129 8-25 87-141/54-89 80-98 Intake and Output 03/03/17 03/04/17 03/04/17 21:59 05:59 13:59 Intake Total 2300 / 2300 50 / 50 Output Total 480 / 480 370 / 370 35 / 35 Balance 1820 / 1820 -320 / -320 -35 / -35 Weight 203 lb 11.2 oz Intake & Output: Intake & Output 03/03/17 03/04/17 03/04/17 21:59 05:59 13:59 Intake Total 2300 / 2300 50 / 50 Output Total 480 / 480 370 / 370 35 / 35 Balance 1820 / 1820 -320 / -320 -35 / -35 Weight 203 lb 11.2 oz Intake: IV 2300 / 2300 50 / 50 Sodium Chloride 0.9% 1, 2000 / 2000 000 ml @ 150 mls/hr IV . Q6H40M [facility] Rx#:[id number] Zithromax 500 mg In 250 / 250 Dextrose 5% in Water 250 ml @ 250 mls/hr IV DAILY [facility] Rx#:[id number] Maxipime 2 gm In Dextrose 50 / 50 50 / 50 5% in Water 50 ml @ 100 mls/hr IV Q12H [facility] Rx#: [id number] Output: Urine Catheter Amount 480 / 480 370 / 370 35 / 35 Other: # Bowel Movements 0 Exam: Constitutional; Afebrile, sleeping after sedatives. agitated overnight. Eyes- No icterus, , No periorbital swelling Ears- Ext ear normal, hearing normal to conversation. Neck- Midline trachea, supple Respiratory system: Air Entry equal on both sides, prolonged exp phase, poor air movement. CVS- Rate rhythm irregular, S1,S2 heard, no gallop, no rub. 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 Medical - PN: Obj Da - Labs CBC & Chem 7: 03/04/17 04:05 03/04/17 04:05 Labs: Abnormal Lab Results 03/04/17 03/04/17 03/04/17 04:05 04:05 04:05 WBC RBC Hgb Hct Gran % Lymph % (Auto) Gran # Lymph # [place] # PT 25.9 H INR 2.3 H VBG Lactic Acid Sodium Potassium 5.2 H Chloride Carbon Dioxide 19 L Anion Gap BUN 41 H Creatinine 1.8 H Glucose 170 H Calcium 8.3 L Magnesium Lactate Dehydrogenase NT-Pro-B Natriuret Pep 2978.0 H Total Protein 5.8 L Triglycerides 235 H Urine Occult Blood Ur Leukocyte Esterase Urine RBC Urine WBC Hyaline Casts U [place] Prot/Creat Ratio 03/04/17 03/03/17 03/03/17 04:05 18:41 18:39 WBC 21.6 H RBC 3.92 L Hgb 12.2 L Hct 38.1 L Gran % 93.4 H Lymph % (Auto) 2.5 L Gran # 20.2 H Lymph # 0.5 L [place] # PT INR VBG Lactic Acid Sodium Potassium Chloride Carbon Dioxide Anion Gap BUN Creatinine Glucose Calcium Magnesium Lactate Dehydrogenase NT-Pro-B Natriuret Pep Total Protein Triglycerides Urine Occult Blood >=1.0 A Ur Leukocyte Esterase 75 A Urine RBC 108 H Urine WBC 13 H Hyaline Casts 4 H U [place] Prot/Creat Ratio 0.25 H 03/03/17 03/03/17 03/03/17 17:57 17:57 15:57 WBC 20.2 H RBC 3.97 L Hgb 12.5 L Hct 39.0 L Gran % 94.4 H Lymph % (Auto) 2.1 L Gran # 19.0 H Lymph # 0.4 L [place] # PT INR VBG Lactic Acid 2.7 H Sodium Potassium Chloride Carbon Dioxide 20 L Anion Gap BUN 35 H Creatinine 1.7 H Glucose 164 H Calcium 8.0 L Magnesium Lactate Dehydrogenase NT-Pro-B Natriuret Pep Total Protein Triglycerides Urine Occult Blood Ur Leukocyte Esterase Urine RBC Urine WBC Hyaline Casts U [place] Prot/Creat Ratio 03/03/17 03/03/17 03/03/17 09:37 09:37 06:46 WBC RBC Hgb Hct Gran % Lymph % (Auto) Gran # Lymph # [place] # PT INR VBG Lactic Acid 3.5 H Sodium Potassium 5.8 H Chloride Carbon Dioxide 19 L 21 L Anion Gap 18.0 H BUN 30 H 31 H Creatinine 1.7 H 1.8 H Glucose 192 H 172 H Calcium 8.2 L 8.3 L Magnesium Lactate Dehydrogenase NT-Pro-B Natriuret Pep Total Protein Triglycerides 258 H Urine Occult Blood Ur Leukocyte Esterase Urine RBC Urine WBC Hyaline Casts U [place] Prot/Creat Ratio 03/03/17 03/03/17 03/03/17 04:15 04:15 04:15 WBC 26.4 H RBC Hgb Hct Gran % 93.5 H Lymph % (Auto) 2.5 L Gran # 24.6 H Lymph # 0.7 L [place] # 1.0 H PT 24.2 H INR 2.1 H VBG Lactic Acid Sodium 132 L Potassium 6.3 H* Chloride Carbon Dioxide 18 L Anion Gap BUN 28 H Creatinine 1.7 H Glucose 151 H Calcium 8.4 L Magnesium Lactate Dehydrogenase 304 H NT-Pro-B Natriuret Pep Total Protein Triglycerides 337 H Urine Occult Blood Ur Leukocyte Esterase Urine RBC Urine WBC Hyaline Casts U [place] Prot/Creat Ratio 03/02/17 03/02/17 03/02/17 22:35 21:20 21:20 WBC RBC Hgb Hct Gran % Lymph % (Auto) Gran # Lymph # [place] # PT 23.8 H INR 2.1 H VBG Lactic Acid 3.4 H Sodium Potassium 5.3 H Chloride 92 L Carbon Dioxide Anion Gap 17.0 H BUN 24 H Creatinine 1.5 H Glucose 155 H Calcium Magnesium 1.4 L Lactate Dehydrogenase 339 H NT-Pro-B Natriuret Pep Total Protein Triglycerides 430 H Urine Occult Blood Ur Leukocyte Esterase Urine RBC Urine WBC Hyaline Casts U [place] Prot/Creat Ratio 03/02/17 21:20 WBC 31.0 H* RBC Hgb Hct Gran % 84.6 H Lymph % (Auto) 3.9 L Gran # 26.2 H Lymph # 1.2 L [place] # 3.4 H PT INR VBG Lactic Acid Sodium Potassium Chloride Carbon Dioxide Anion Gap BUN Creatinine Glucose Calcium Magnesium Lactate Dehydrogenase NT-Pro-B Natriuret Pep Total Protein Triglycerides Urine Occult Blood Ur Leukocyte Esterase Urine RBC Urine WBC Hyaline Casts U [place] Prot/Creat Ratio Meds: Medications Acetaminophen/Hydrocodone Bitart ([place] 5/325mg) 1 tab PO Q4HP PRN PRN Reason: Pain Albuterol/Ipratropium (Duoneb) 3 ml NEB Q4HRT [facility] Last Admin: 03/04/17 05:27 Dose: 3 ml Allopurinol (Zylopriim) 300 mg PO DAILY [facility] Last Admin: 03/03/17 10:24 Dose: Not Given Diagnostic Test (Pha) (Accu-Chek) 1 each FS Q6 [facility] Last Admin: 03/04/17 05:57 Dose: Not Given Famotidine (Pepcid) 20 mg IV Q12 [facility] Last Admin: 03/03/17 20:54 Dose: 20 mg Fluticasone Propionate (Flonase) 1 spray NS DAILY [facility] Last Admin: 03/03/17 10:23 Dose: Not Given Hydromorphone HCl (Dilaudid) 0.5 mg IV Q1HP PRN PRN Reason: Pain Last Admin: 03/04/17 03:45 Dose: 0.5 mg Cefepime HCl 2 gm/ Dextrose 50 mls @ 100 mls/hr IV Q12H [facility] Last Infusion: 03/03/17 22:02 Dose: Infused Azithromycin 500 mg/ Dextrose 250 mls @ 250 mls/hr IV DAILY [facility] Stop: 03/05/17 09:59 Last Infusion: 03/03/17 14:28 Dose: Infused Sodium Chloride (Sodium Chloride 0.9%) 1,000 mls @ 100 mls/hr IV .Q10H [facility] Last Admin: 03/03/17 20:06 Dose: 100 mls/hr Lorazepam (Ativan) 0.5 mg IV Q4-6HP PRN PRN Reason: ANXIETY/SEDATION Last Admin: 03/04/17 03:45 Dose: 0.5 mg Magnesium Hydroxide (Milk Of Magnesia) 30 ml PO DAILYP PRN PRN Reason: Constipation Methylprednisolone Sodium Succinate (Solu-Medrol) 62.5 mg IV Q8 [facility] Last Admin: 03/04/17 06:02 Dose: 62.5 mg Naloxone HCl (Narcan) 0.1 mg IV Q2MIN PRN PRN Reason: Opiate Reversal Ondansetron HCl (Zofran) 4 mg IV Q4HP PRN PRN Reason: Nausea And Vomiting Simvastatin (Zocor) 40 mg PO HS [facility] Last Admin: 03/03/17 20:55 Dose: Not Given Medical - PN: A/P - Time Spent With Patient Total time spent is greater than 50% in coordination of care (as documented) at patient's floor/unit and/or counseling patient: - Narrative A/P Narrative: a/p Acute hypoxic Hypercapnic resp failure: Due to copd exacerbation, PNA ( elevated wbc, procalcitonin high) , old X ray not available to compare. 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 Respiratory acidosis and non anion gap metabolic acidosis: Due to copd with co2 retention, Saline use and renal failure. Pneumonia:Cultures neg, MRSA screen neg, off vanco, continue cefepime and zithromax in light of copd. COPD exacerbation: IV steroids, Duonebs q 4 hrs, BIPAP treatment. Hypomagnesemia: replace Atrial Flutter: BP stable, IV metoprolol helped with Heart rate, monitor for now , if bp drops consider amiodraone. Acute kidney injury: Creat is 1.8, with decreased urine output, hyperkalemia, IV fluids ongoing, Nephrology consulted, renal usg shows medical renal disease. BUN is 41 Hyperkalemia:improved yesterday, but slightly up again today at 5.2 , due to renal failure and acidosis. Anticoagulation: On Coumadin, dose held, INR therapeutic, hold off on coumadin. Right hip fracture: Ortho following, will need operative intervention, pt will need to be stable first. reviwed with Dr Zamora the chr osteomyelitis history, MRI of the femur ordered, will ok study after patient is more stable. DVT : will start on hep once INR is subtherapeutic, Last INR is 2.2 Diet Cardiac Code full Spent > 60mins providing critical care, managing bipap, reviewing ABG, X ray chest, Tele,labs, monitoring urine output. Medical - PN: Qual - VTE Deep Vein Thrombosis/Pulmonary Embolism Present on Admission: No
[2017-03-04] MEDS: 0.9 % SODIUM CHLORIDE 1,000 ML IV SCH (07:06)
--- NOTE | 2017-03-04 07:33 | Echocardiogram Report ---
ECHOCARDIOGRAM: 2-D and M-mode echocardiography with cardiac Doppler and color flow imaging were performed with a [employer] A[employer]io MX. Indication is atrial flutter. The study was technically difficult for anatomic reasons. A diagnostic M-mode tracing of the LV could not be obtained. The overall size of the RA, RV, and LV appeared normal. LV wall thickness appeared mildly increased. Systolic performance appeared vigorous to hyperdynamic. Estimated ejection fraction is 75%. The LA appeared mildly enlarged. The aortic root appeared mildly dilated, 3.9 cm diameter. The aortic valve appeared trileaflet and normal. There was no evidence for aortic stenosis or aortic regurgitation by Doppler interrogation. The mitral and tricuspid valves appeared unremarkable. Doppler interrogation of LV inflow disclosed a monophasic spectral dispersion pattern related to absent AV synchrony. There was no evidence for mitral regurgitation. The pulmonic valve was not visualized. Pulmonary artery acceleration time was difficult to measure due to tachycardia. There was no evidence for pulmonic stenosis or pulmonic regurgitation. Tricuspid regurgitation, probably mild (1+), was noted. No intracardiac shunting was appreciated. There was no evidence for pericardial effusion. The IVC was dilated and did not vary with the respiratory cycle indicating raised the CVP. Calculated estimate of PA systolic pressure is mildly elevated at 45 mmHg. Hepatic venous interrogation disclosed ''d'' wave dominance corroborating elevated RA pressure. Atrial flutter with 2:1 conduction, ventricular rate 126, was present. CONCLUSION:Technically difficult study for anatomic reasons. Mild aortic root dilatation. Mild concentric LVH with vigorous to hyperdynamic systolic performance. Mild LA enlargement. 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 (See accompanying M-mode and Doppler reports for quantitation.) ECHOCARDIOGRAPHY M-MODE CALCULATIONS: HT: 69'' WT: 193 BSA: 2.03 m2 NORMALS AORTA: AORTIC ROOT 3.9 2.0-3.7 cm LEFT ATRI[facility] 3.8 1.9-4.0 cm MITRAL VALVE: EXCURSION 2.0 1.9-2.7 cm EPSS 0.3 <0.5 cm LT VENTRICLE: LVID (ED) -- 3.5-5.7 cm LVID (ES) -- SEPTAL THICKNESS -- 0.6-1.1 cm SEPTAL EXCURSION -- 0.3-0.8 cm LVPW THICKNESS -- 0.6-1.1 cm LVPW EXCURSION -- 0.9-1.4 cm MINOR AXIS FS -- 25%-40% RT VENTRICLE: RVID (ED) -- 0.9-2.6 cm(up to 3cm if LLD) QUALITATIVE DOPPLER FLOW STUDIES MITRAL VALVE -- AORTIC VALVE -- TRICUSPID VALVE TR, probably mild (1+) PULMONIC VALVE -- QUANTITATIVE DOPPLER FLOW STUDIES SAMPLE SITES VELOCITIES PEAK PRESSURE VALVE AREA and/or VALVE WINDOW (PEAK,M/SEC) DROP (GRADIENT) PRESSURE HALF-TIME MV (Diastole) 0.7 -- -- MV (Systole) -- -- -- AO (Diastole) -- -- -- AO (Systole) 1.0 -- -- TV (Systole) 2.5 -- -- PV (Systole) 0.7 -- -- PV (Diastole) -- LWG:marlene Job ID: [id number] Doc ID: [id number] Kulwant Sands MD
--- NOTE | 2017-03-04 07:36 | Orthopedic Progress Note ---
Subjective Patient information: Note initiated : 03/04/17 at 7:35 am Service Date, if different from initiated Date: [] Patient: Trey Stock 86 y/o M admitted on 03/02/17 for Right Hip Fracture, Fall. Chief Complaint: [] Interval history: right hip fx - awaiting clearance Objective Vital signs: Vital Signs Temp Pulse Resp BP BP Pulse Ox 03/04/17 06:54 104 H 11 L 96 03/04/17 06:00 11 L 120/67 96 03/04/17 05:10 109 H 11 L 94 03/04/17 05:00 11 L 133/75 94 03/04/17 04:00 117/74 90 03/04/17 03:08 103 H 14 91 03/04/17 03:00 16 108/77 91 03/04/17 02:00 10 L 127/79 90 03/04/17 01:00 10 L 115/54 03/04/17 00:56 95 H 9 L 96 03/04/17 00:00 97.6 F 13 118/58 96 03/03/17 23:22 95 H 12 03/03/17 23:04 94 H 9 L 95 03/03/17 23:00 9 L 104/67 95 03/03/17 22:00 19 124/66 92 03/03/17 21:18 94 H 10 L 93 03/03/17 21:00 15 102/69 93 03/03/17 20:15 12 97/63 91 03/03/17 20:10 12 111/68 90 03/03/17 20:00 97.8 F 11 L 108/70 91 03/03/17 19:20 128 H 11 L 03/03/17 19:18 100 H 11 L 92 03/03/17 19:13 92 03/03/17 19:00 11 L 109/63 91 03/03/17 18:56 58 L 11 L 92 03/03/17 18:00 11 L 120/64 98 03/03/17 17:24 128 H 10 L 129/81 90 03/03/17 17:23 128 H 10 L 89 L 03/03/17 17:18 129 H 12 92 03/03/17 17:09 128 H 15 111/69 89 L 03/03/17 17:08 128 H 11 L 89 L 03/03/17 17:01 129 H 21 141/61 94 03/03/17 17:00 129 H 16 141/61 93 03/03/17 16:09 128 H 13 96 03/03/17 16:04 113 H 12 124/72 95 03/03/17 16:03 128 H 17 94 03/03/17 16:00 98.2 F 15 124/72 95 03/03/17 15:15 105 H 16 03/03/17 15:08 104 H 23 95 03/03/17 15:01 103 H 19 120/74 98 03/03/17 15:00 97 H 11 L 120/74 95 03/03/17 14:01 99 H 13 131/74 95 03/03/17 14:00 97 H 13 131/74 95 03/03/17 13:46 64 14 129/87 80 L 03/03/17 13:45 14 03/03/17 13:30 94 H 9 L 112/75 93 03/03/17 13:29 94 H 10 L 91 03/03/17 13:27 93 H 12 88 L 03/03/17 13:16 94 H 9 L 101/61 91 03/03/17 13:15 91 H 10 L 89 L 03/03/17 13:03 62 10 L 108/64 90 03/03/17 13:02 93 H 12 91 03/03/17 13:01 100 H 15 87/62 90 03/03/17 13:00 93 H 9 L 90 03/03/17 12:59 12 108/64 90 03/03/17 12:46 93 H 9 L 97/56 90 03/03/17 12:45 93 H 9 L 91 03/03/17 12:31 92 H 9 L 91/62 90 03/03/17 12:30 92 H 9 L 89 L 03/03/17 12:22 90 11 L 91/61 91 03/03/17 12:21 90 10 L 91 03/03/17 12:19 96 H 10 L 95/57 91 03/03/17 12:18 92 H 8 L 92 03/03/17 12:01 103 H 12 97/68 91 03/03/17 12:00 98.2 F 106 H 15 89 L 03/03/17 11:59 115 H 12 92 03/03/17 11:58 98.2 F 12 97/68 90 05/02/17 11:17 112 H 18 91 03/03/17 11:11 99 H 18 03/03/17 11:01 99 H 11 L 101/57 90 03/03/17 11:00 106 H 12 89 L 03/03/17 10:02 108 H 12 111/71 91 03/03/17 10:01 107 H 12 92 03/03/17 10:00 15 111/71 92 03/03/17 09:48 106 H 9 L 91 03/03/17 09:00 20 133/77 88 L 03/03/17 08:01 129/64 93 03/03/17 08:00 21 129/64 95 Intake and Output 03/03/17 03/04/17 03/04/17 21:59 05:59 13:59 Intake Total 2300 / 2300 50 / 50 1000 / 1000 Output Total 480 / 480 370 / 370 35 / 35 Balance 1820 / 1820 -320 / -320 965 / 965 Intake: IV 2300 / 2300 50 / 50 1000 / 1000 Sodium Chloride 0.9% 1, 1999 / 1999 1000 / 1000 000 ml @ 100 mls/hr IV . Q10H [facility] Rx#:[id number] Zithromax 500 mg In 250 / 250 Dextrose 5% in Water 250 ml @ 250 mls/hr IV DAILY [facility] Rx#:[id number] Maxipime 2 gm In Dextrose 50 / 50 50 / 50 5% in Water 50 ml @ 100 mls/hr IV Q12H [facility] Rx#: [id number] Output: Urine Catheter Amount 480 / 480 370 / 370 35 / 35 Other: # Bowel Movements 0 Weight 203 lb 11.2 oz Intake & Output: Intake & Output 03/03/17 03/04/17 03/04/17 21:59 05:59 13:59 Intake Total 2300 / 2300 50 / 50 1000 / 1000 Output Total 480 / 480 370 / 370 35 / 35 Balance 1820 / 1820 -320 / -320 965 / 965 Weight 203 lb 11.2 oz Intake: IV 2300 / 2300 50 / 50 1000 / 1000 Sodium Chloride 0.9% 1, 1999 / 1999 1000 / 1000 000 ml @ 100 mls/hr IV . Q10H [facility] Rx#:[id number] Zithromax 500 mg In 250 / 250 Dextrose 5% in Water 250 ml @ 250 mls/hr IV DAILY [facility] Rx#:[id number] Maxipime 2 gm In Dextrose 50 / 50 50 / 50 5% in Water 50 ml @ 100 mls/hr IV Q12H [facility] Rx#: [id number] Output: Urine Catheter Amount 480 / 480 370 / 370 35 / 35 Other: # Bowel Movements 0 Weight bearing status: non Neurological exam IM: Yes alert, Yes oriented X3, Yes motor sensory intact, Yes neurovascular intact Extremities exam IM: No calf tenderness, Yes Foot pink and warm, Yes neurovascular intact - Labs CBC & BMP: 03/04/17 04:05 03/04/17 04:05 Labs: Orthopedic Labs 03/04/17 03/03/17 03/02/17 04:05 04:15 21:20 PT 25.9 H 24.2 H 23.8 H INR 2.3 H 2.1 H 2.1 H 03/04/17 03/03/17 03/03/17 04:05 17:57 04:15 Hgb 12.2 L 12.5 L 15.3 Hct 38.1 L 39.0 L 45.8 03/02/17 21:20 Hgb 14.8 Hct 46.7 Assessment and Plan (1) Fracture of hip Intertrochanteric fx right hip awaiting medical clearance for long gamma nail MRI today to eval old osteomyelitis lesion of femur Status: Acute
--- NOTE | 2017-03-04 08:02 | XRay Report ---
CLINICAL INFORMATION: Shortness of breath COMPARISON: 03/03/2017 FINDINGS: The heart is mildly enlarged, but unchanged. Mediastinum and pulmonary vessels are unremarkable on today's study. Moderate sized bibasilar infiltrates have worsened. No definite pleural effusion IMPRESSION: Worsening moderate bibasilar infiltrate suspected aspiration. No evidence of CHF Interpreted and Authenticated by: Jeo Lafleur 03/04/17
--- NOTE | 2017-03-04 08:53 | Consultation ---
DATE OF CONSULTATION: 03/03/2017 CHIEF COMPLAINT: Right hip injury. HISTORY OF PRESENT ILLNESS: The patient is an 86-year-old male with multiple medical problems and he fell at home in his yard and landed on his right hip. He was taken to the Emergency Department at [facility] and then transferred to [facility] for definitive care. At that point he was found to pneumonia, atrial flutter with rates in the 120s and was admitted to the hospital for treatment of his medical conditions. 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 He denies any other complaints. The hip is the only thing that is causing him pain at this point. PAST MEDICAL HISTORY: COPD, hypertension, hyperlipidemia, coronary artery disease, atrial fibrillation. PAST SURGICAL HISTORY: CABG, right femur surgery. MEDICATIONS: 1. Tylenol PM. 2. Zyloprim. 3. Flomax. 4. Toprol XL. 5. Zocor. 6. Coumadin. 7. Prednisone. ALLERGIES: BETA BLOCKERS and NIACIN. FAMILY HISTORY: Negative. SOCIAL HISTORY: He lives with his . He is an ex-smoker. No alcohol or tobacco. REVIEW OF SYSTEMS: No recent chest pain, shortness of breath, fever, chills, nausea, vomiting, diarrhea or constipation. PHYSICAL EXAMINATION: GENERAL: He is resting on the hospital bed in no acute distress. He has a BiPAP on. Pulse is about 125, blood pressure 117/83, respirations 14, 95% 02 on BiPAP. He is alert and oriented x3, cooperative to exam. ABDOMEN: Soft, nontender, nondistended. HEART: Atrial flutter with rapid response. CHEST: Basilar crackles and wheezes bilaterally. RIGHT LOWER EXTREMITY: He has a well-healed incision over the lateral femur. He has full range of motion of the hip without pain. Sensation is intact to light touch grossly throughout the extremity, 2+ DP and PT with capillary refill less than 2 seconds. RADIOGRAPHS: 2 views of the right hip demonstrate a displaced intertrochanteric fracture. Distally there is an area of widening and loosening consistent with old osteomyelitis. ASSESSMENT: 1. Right intertrochanteric hip fracture, displaced. 2. History of osteomyelitis, right femur. PLAN: I am going to get an MRI scan of the right femur just to make sure there is no active osteomyelitis. There does not appear to be-this is a chronic condition. We will wait until he is medically cleared and when so, we will proceed with a right hip gamma nail. The risks and benefits were discussed with the patient in detail including, but not limited to, the risks of anesthesia, problems with the heart or lungs related to anesthesia, infection, compromise or injury to the nerves and blood vessels, deep venous thrombosis, pulmonary embolism, pneumonia, continued pain after surgery, worsening pain or symptoms after surgery, swelling, loss of motion, need for repeat surgery, hardware failure, re-tear or failure of repair site, malunion, nonunion, and hardware pain requiring future removal. We talked about the postoperative course in detail. He understands and wishes to proceed. DE:malrene Job ID: [id number] Doc ID: [id number] Zohreh Tang MD
[2017-03-04] MEDS: AZITHROMYCIN 500 MG in DEXTROSE 5% IN WATER 250 ML IV SCH (09:12)
[2017-03-04] MEDS: CEFEPIME 2 GM in DEXTROSE 5% IN WATER 50 ML IV SCH (09:12)
[2017-03-04] MEDS: FLUTICASONE PROPIONATE SPRAY.NAS NS SCH (09:13)
[2017-03-04] MEDS: ALLOPURINOL 300 MG TABLET PO SCH (09:13)
[2017-03-04] MEDS: FAMOTIDINE/PF 20 MG/2 ML VIAL IV SCH ×2 (09:15→20:54)
[2017-03-04] MEDS: METOPROLOL TARTRATE 5 MG/5 ML VIAL IV SCH ×3 (10:05→10:20)
[2017-03-04] MEDS ORDERED: FUROSEMIDE 100 MG/10 ML VIAL IV ONE (12:00)
[2017-03-04] MEDS ORDERED: DILTIAZEM 25 MG/5 ML VIAL IV ONE ×2 (14:25→16:03)
[2017-03-04] MEDS: PIPERACILLIN SODIUM/TAZOBACTAM 3.375 GM in DEXTROSE 5% IN WATER 50 ML IV SCH ×2 (14:55→21:59)
[2017-03-04 17:27] LABS: ALT/SGPT 16 U/l (0-40); Albumin 4.2 gm/dL (3.2-5.2); Albumin/Globulin Ratio 1.8 (1.0-2.3); Alkaline Phosphatase 56 U/L (39-117); Blood Urea Nitrogen 46 mg/dl (8-23)
[2017-03-04] MEDS ORDERED: DILTIAZEM 125 MG/25 ML VIAL IV ONE (18:18)
[2017-03-04] MEDS: DILTIAZEM 125 MG in 0.9 % SODIUM CHLORIDE 100 ML IV SCH (18:43)
[2017-03-04] MEDS: SIMVASTATIN 40 MG TABLET PO SCH (20:55)
[2017-03-05] MEDS: HYDROmorphone 2 MG/ML SYRINGE IV PRN ×7 (01:47→22:57)
[2017-03-05] MEDS: IPRATROPIUM/ALBUTEROL 3 ML AMPUL.NEB NEB SCH ×6 (03:12→23:10)
[2017-03-05] MEDS: DILTIAZEM 125 MG in 0.9 % SODIUM CHLORIDE 100 ML IV SCH (04:16)
[2017-03-05] MEDS ORDERED: DILTIAZEM 125 MG/25 ML VIAL IV ONE (04:16)
[2017-03-05] MEDS: methylPREDNISolone SOD SUCC 125 MG/2 ML VIAL IV SCH ×3 (05:24→21:41)
[2017-03-05] MEDS: PIPERACILLIN SODIUM/TAZOBACTAM 3.375 GM in DEXTROSE 5% IN WATER 50 ML IV SCH ×3 (05:24→21:40)
[2017-03-05 06:03] LABS: Basophils # (Auto) 0 K/mcL (0.0-0.3); Basophils % (Auto) 0 % (0.0-2.0); Eosinophils # (Auto) 0 K/mcL (0.0-0.7); Eosinophils % (Auto) 0 % (0.0-7.0); Granulocytes % (Auto) 92.6 % (38.0-78.0); Lymphocytes # (Auto) 0.3 K/mcL (1.5-4.8); Lymphocytes % (Auto) 1.2 % (15.5-49.0); Mean Cell Volume 96.5 fL (80.0-100.0); Mean Corpuscular HGB Conc 32.2 g/dL (31.0-36.0); Mean Corpuscular Hemoglobin 31.1 pg (26.0-34.0); Monocytes # (Auto) 1.8 K/mcL (0.1-0.9); Monocytes % (Auto) 6.2 % (1.0-12.0); Platelet Count 173 K/mcL (140-440); RBC 3.95 M/mcL (4.50-5.90)
[2017-03-05 06:08] LABS: ALT/SGPT 16 U/l (0-40); Albumin 3.9 gm/dL (3.2-5.2); Albumin/Globulin Ratio 1.6 (1.0-2.3); Alkaline Phosphatase 51 U/L (39-117); Bilirubin,Direct < 0.2 mg/dL (0.0-0.3); Blood Urea Nitrogen 50 mg/dl (8-23); Gamma Glutamyl Transpeptidase 42 U/L (8-61); Magnesium 1.9 mg/dL (1.6-2.5); Uric Acid 6.3 mg/dL (2.5-8.0)
--- NOTE | 2017-03-05 06:29 | Orthopedic Progress Note ---
Subjective Patient information: Note initiated : 03/05/17 at 6:28 am Service Date, if different from initiated Date: [] Patient: Trey Stock 86 y/o M admitted on 03/02/17 for Right Hip Fracture, Fall. Chief Complaint: [] Interval history: still waiting medical clearance and mri Objective Vital signs: Vital Signs Temp Pulse Pulse Resp BP BP Pulse Ox 03/05/17 06:00 16 133/63 95 03/05/17 05:00 91 H 18 146/66 95 03/05/17 04:45 12 155/66 97 03/05/17 04:30 12 116/78 97 03/05/17 04:15 12 144/66 97 03/05/17 04:00 97.9 F 14 149/56 97 03/05/17 03:07 88 11 L 94 03/05/17 03:00 12 107/61 94 03/05/17 02:45 12 113/67 91 03/05/17 02:40 12 97/46 93 03/05/17 02:20 12 115/54 92 03/05/17 02:00 10 L 156/57 97 03/05/17 01:00 88 19 138/59 94 03/05/17 00:00 97.4 F L 88 16 108/68 97 03/04/17 23:00 88 96 H 16 121/63 92 03/04/17 22:00 12 123/58 91 03/04/17 21:58 88 20 93 03/04/17 21:00 12 114/63 91 03/04/17 20:30 12 122/61 92 03/04/17 20:00 98.0 F 88 13 117/56 94 03/04/17 19:30 10 L 121/62 92 03/04/17 19:28 91 03/04/17 19:27 98 H 18 03/04/17 19:10 14 128/82 90 03/04/17 19:05 12 116/66 92 03/04/17 18:55 12 137/67 94 03/04/17 18:50 12 132/81 94 03/04/17 18:45 12 138/96 92 03/04/17 18:40 12 120/87 94 03/04/17 18:38 12 137/69 93 03/04/17 18:16 11 L 152/72 93 03/04/17 18:15 93 03/04/17 18:00 22 152/72 95 03/04/17 17:58 121 H 19 94 03/04/17 17:00 18 135/86 95 03/04/17 16:00 97.8 F 129 H 15 133/65 94 03/04/17 15:35 90 14 96 03/04/17 15:34 93 H 15 03/04/17 15:00 8 L 128/68 03/04/17 14:00 20 139/90 96 03/04/17 13:36 101 H 21 95 03/04/17 13:00 8 L 126/72 93 03/04/17 12:00 97.5 F L 97 H 12 123/67 94 03/04/17 11:03 102 H 18 03/04/17 11:00 103 H 20 136/77 95 03/04/17 09:58 11 L 135/93 95 03/04/17 09:10 128 H 13 97 03/04/17 09:00 18 151/88 96 03/04/17 08:00 12 121/72 98 03/04/17 07:00 97.8 F 11 L 96 03/04/17 06:54 104 H 11 L 96 Intake and Output 03/04/17 03/05/17 03/05/17 21:59 05:59 13:59 Intake Total 50 / 50 55 / 55 Output Total 1050 / 1050 490 / 490 60 / 60 Balance -1000 / -1000 -435 / -435 -60 / -60 Intake: IV 50 / 50 55 / 55 Cardizem 125 mg In Sodium 5 / 5 Chloride 0.9% 100 ml @ 5 MG/HR 5 mls/hr IV Q12H [facility] Rx#:[id number] Zosyn 3.375 gm In 50 / 50 50 / 50 Dextrose 5% in Water 50 ml @ 100 mls/hr IV Q8H [facility] Rx#:[id number] Output: Urine Catheter Amount 1050 / 1050 490 / 490 60 / 60 Other: Weight 204 lb 14.4 oz Intake & Output: Intake & Output 03/04/17 03/05/17 03/05/17 21:59 05:59 13:59 Intake Total 50 / 50 55 / 55 Output Total 1050 / 1050 490 / 490 60 / 60 Balance -1000 / -1000 -435 / -435 -60 / -60 Weight 204 lb 14.4 oz Intake: IV 50 / 50 55 / 55 Cardizem 125 mg In Sodium 5 / 5 Chloride 0.9% 100 ml @ 5 MG/HR 5 mls/hr IV Q12H [facility] Rx#:[id number] Zosyn 3.375 gm In 50 / 50 50 / 50 Dextrose 5% in Water 50 ml @ 100 mls/hr IV Q8H [facility] Rx#:[id number] Output: Urine Catheter Amount 1050 / 1050 490 / 490 60 / 60 Weight bearing status: non Neurological exam IM: Yes alert, Yes oriented X3, Yes motor sensory intact, Yes neurovascular intact Extremities exam IM: No calf tenderness, Yes Foot pink and warm, Yes neurovascular intact - Labs CBC & BMP: 03/05/17 04:15 03/05/17 04:15 Labs: Orthopedic Labs 03/05/17 03/04/17 03/03/17 04:15 04:05 04:15 PT 25.3 H 25.9 H 24.2 H INR 2.2 H 2.3 H 2.1 H 03/02/17 21:20 PT 23.8 H INR 2.1 H 03/05/17 03/04/17 03/03/17 04:15 04:05 17:57 Hgb 12.3 L 12.2 L 12.5 L Hct 38.1 L 38.1 L 39.0 L 03/03/17 03/02/17 04:15 21:20 Hgb 15.3 14.8 Hct 45.8 46.7 Assessment and Plan (1) Fracture of hip Intertrochanteric fx right hip awaiting medical clearance for long gamma nail MRI today to eval old osteomyelitis lesion of femur Status: Acute
[2017-03-05] MEDS: FLUTICASONE PROPIONATE SPRAY.NAS NS SCH (07:08)
--- NOTE | 2017-03-05 07:41 | XRay Report ---
CLINICAL INFORMATION: Increased white blood cell count COMPARISON: 03/04/2017 FINDINGS: Mild cardiomegaly is unchanged. Mediastinum and pulmonary vessels are normal. Bibasilar infiltrates show slight improved aeration compared to yesterday's study. No definite effusions IMPRESSION: Bibasilar infiltrates show slight improvement since yesterday's study. They remain [id number] sized Interpreted and Authenticated by: Joe Lafleur 03/05/17
[2017-03-05] MEDS ORDERED: BISACODYL 10 MG SUPP.RECT PR ONE (07:55)
[2017-03-05] MEDS ORDERED: AMIODARONE HCL 450 MG in DEXTROSE 5% IN WATER (NON-PVC) 241 ML IV SCH (08:00)
--- NOTE | 2017-03-05 08:54 | Internal Med Progress Note ---
Medical - PN: Subj Patient information: Note initiated : 03/05/17 at 8:54 am Service Date, if different from initiated Date: [] Patient: Trey Stock 86 y/o M admitted on 03/02/17 for Right Hip Fracture, Fall. Chief Complaint: [] Interval history: Mr. Stock is a 86 year old male with h/o copd, on chr prednisone, CAD s/p CABG 25 yrs ago, Afib/ Flutter on coumadin and toporol presented to outside hospital ER with a mechanical fall. The patient reports that he was changing a bin in his yard, likely moving it to the truck, when he slipped and fell. He was taken to the ER and was noted to have right femur fracture. The patient was then transported to the [facility] ER. His labs were reported to be unremarkable besides creat of 1.5, and HR 125 in flutter which was thought to be due to pain from the fracture. The patient was admitted to medical floors for further management. On my evaluation the patient denies any other complaints, notes chr sob on activity, denies any fever or chills. The patient however clinically appeared tachypenic, and did not answer my questions coherently. The patients oxygen level was log and on RA dropped as low as 82%. We got an ABG and noted his PH 7.29/ 61/53, the exam also showed lee prolonged exp phase, and lee wheezing with decreased air entry. Patient xray suggestive of pna, ? CHF, admitted to MICU for acute resp failure, copd exacerbation. 03/03 : Pt seen examined, overnight events noted. Pt remains on BIPAP, with good tidal volume, mental status ok, but patient still is acidotic with co2 retention. His ABG this AM Was worse than last night, changes to bipap made. pt also noted to have oligouria, worsening kidney function and hyperkalemia. Nephrology consulted, renal usg ordered. Pt remains tachycardic in flutter. the patient labs show worsening lecocytosis 15 K in [place], 30K last night, He was on IV vancom and cefepime, MRSA screen was neg, vanco stopped. Zithromax added for atypical coverage given h/o copd. Pt cultures are neg so far. Not cleared for surgery given acute resp failure. was able to review old echo and old notes, normal lvef noted, and he seems to be intermittently dependent on oxygen from his Copd stand point. 5/3 Pt seen examined, was restless in the night with response to dialudid and ativan, sleeping comfortably this AM, labs reviewed, WBC mildly increased, lactate 2.2, creat 1.8, BUN 41, K 5.2, Urine output was good yesterday evening but tapering down again. The patient has lee wheezing and poor air movement. ABG / Mixed gas shows ph of 7.23/ 57 HR mildly tachycardic and responded well to metoprolol 5mg x 3, BP remains stable. Remains on bipap, settings advanced to 18/10, Fio2 32%. I reviewed his case with his family, explained to them the poor prognosis given age With regards to his femur fracture, he is not yet ok to undergo surgery ,given his acute copd exacerbation. His X ray chest is being reported as CHF however the patient does not have edema feet, clinically was not grossly fluid overloaded, He also has elevated Procalcitonin, which would all favor a pneumonia like picture, likely in conjunction with copd and mild chf. 5/ Pt seen examined, overnight events noted, pt remains altered, encephalopathic, does not follow commands, His wbc count is up, today to 28K ( new infection vs steroid use) , ABG last night was good. He will be weaned off bipap today to see if he can maintain his ventilation off resp support He remains critically sick and not a candidate for surgery yet. MRI of the right femur pending, if he is off bipap we may consider getting that today. Head CT pending, X ray abdomen pending. His HR is variable, on cardizem drip, with good response overnight, but this AM again is tachycardic, Will stop same and start on amiodarone IV . Good urine output overnight. Pertinent ROS: unable, pt altered. - Constitutional Vitals: Vital Signs Temp Pulse Resp BP Pulse Ox 97.9 F 134 H 12 133/63 99 03/05/17 04:00 03/05/17 07:42 03/05/17 07:42 03/05/17 06:00 03/05/17 07:42 Period Temp Pulse Resp BP Sys/Gomez Pulse Ox Last 24 Hr 97.4 F-98.0 F 88-134 8-22 97-156/46-96 90-99 Intake and Output 03/04/17 03/05/17 03/05/17 21:59 05:59 13:59 Intake Total 50 / 50 55 / 55 1050 / 1050 Output Total 1050 / 1050 490 / 490 60 / 60 Balance -1000 / -1000 -435 / -435 990 / 990 Weight 204 lb 14.4 oz Intake & Output: Intake & Output 03/04/17 03/05/17 03/05/17 21:59 05:59 13:59 Intake Total 50 / 50 55 / 55 1050 / 1050 Output Total 1050 / 1050 490 / 490 60 / 60 Balance -1000 / -1000 -435 / -435 990 / 990 Weight 204 lb 14.4 oz Intake: IV 50 / 50 55 / 55 1050 / 1050 Cardizem 125 mg In Sodium 5 / 5 Chloride 0.9% 100 ml @ 5 MG/HR 5 mls/hr IV Q12H [facility] Rx#:[id number] Zosyn 3.375 gm In 50 / 50 50 / 50 50 / 50 Dextrose 5% in Water 50 ml @ 100 mls/hr IV Q8H [facility] Rx#:[id number] Output: Urine Catheter Amount 1050 / 1050 490 / 490 60 / 60 Exam: Constitutional; Afebrile, drowsy, does not follow commands Eyes- No icterus, , No periorbital swelling Ears- Ext ear normal Neck- Midline trachea, supple Respiratory system: Air Entry equal on both sides, No crackles or wheezing, CVS- Rate tachycardic, rhytym atrial flutter,r egular, s1, s2 heard Abdomen- Soft distended, hypoactive bowel sounds. PADDING GLUER- AOOx0, not following commands, , moving all extremities, pupils symetrical , reactive to light. Medical - PN: Obj Da - Labs CBC & Chem 7: 03/05/17 04:15 03/05/17 04:15 Labs: Abnormal Lab Results 03/05/17 03/05/17 03/05/17 04:15 04:15 04:15 WBC 28.4 H RBC 3.95 L Hgb 12.3 L Hct 38.1 L Gran % 92.6 H Lymph % (Auto) 1.2 L Gran # 26.3 H Lymph # 0.3 L [place] # 1.8 H PT 25.3 H INR 2.2 H VBG Lactic Acid Sodium Potassium Chloride Carbon Dioxide 19 L Anion Gap 19.0 H BUN 50 H Creatinine 2.0 H Glucose 186 H Calcium Magnesium Lactate Dehydrogenase NT-Pro-B Natriuret Pep Total Protein Triglycerides 355 H Urine Occult Blood Ur Leukocyte Esterase Urine RBC Urine WBC Hyaline Casts U [place] Prot/Creat Ratio 03/04/17 03/04/17 03/04/17 16:25 04:05 04:05 WBC RBC Hgb Hct Gran % Lymph % (Auto) Gran # Lymph # [place] # PT INR VBG Lactic Acid Sodium Potassium 5.2 H Chloride Carbon Dioxide 18 L 19 L Anion Gap 21.0 H BUN 46 H 41 H Creatinine 2.0 H 1.8 H Glucose 178 H 170 H Calcium 8.3 L Magnesium Lactate Dehydrogenase NT-Pro-B Natriuret Pep 2978.0 H Total Protein 5.8 L Triglycerides 235 H Urine Occult Blood Ur Leukocyte Esterase Urine RBC Urine WBC Hyaline Casts U [place] Prot/Creat Ratio 03/04/17 03/04/17 03/03/17 04:05 04:05 18:41 WBC 21.6 H RBC 3.92 L Hgb 12.2 L Hct 38.1 L Gran % 93.4 H Lymph % (Auto) 2.5 L Gran # 20.2 H Lymph # 0.5 L [place] # PT 25.9 H INR 2.3 H VBG Lactic Acid Sodium Potassium Chloride Carbon Dioxide Anion Gap BUN Creatinine Glucose Calcium Magnesium Lactate Dehydrogenase NT-Pro-B Natriuret Pep Total Protein Triglycerides Urine Occult Blood Ur Leukocyte Esterase Urine RBC Urine WBC Hyaline Casts U [place] Prot/Creat Ratio 0.25 H 03/03/17 03/03/17 03/03/17 18:39 17:57 17:57 WBC 20.2 H RBC 3.97 L Hgb 12.5 L Hct 39.0 L Gran % 94.4 H Lymph % (Auto) 2.1 L Gran # 19.0 H Lymph # 0.4 L [place] # PT INR VBG Lactic Acid Sodium Potassium Chloride Carbon Dioxide 20 L Anion Gap BUN 35 H Creatinine 1.7 H Glucose 164 H Calcium 8.0 L Magnesium Lactate Dehydrogenase NT-Pro-B Natriuret Pep Total Protein Triglycerides Urine Occult Blood >=1.0 A Ur Leukocyte Esterase 75 A Urine RBC 108 H Urine WBC 13 H Hyaline Casts 4 H U [place] Prot/Creat Ratio 03/03/17 03/03/17 03/03/17 15:57 09:37 09:37 WBC RBC Hgb Hct Gran % Lymph % (Auto) Gran # Lymph # [place] # PT INR VBG Lactic Acid 2.7 H 3.5 H Sodium Potassium Chloride Carbon Dioxide 19 L Anion Gap 18.0 H BUN 30 H Creatinine 1.7 H Glucose 192 H Calcium 8.2 L Magnesium Lactate Dehydrogenase NT-Pro-B Natriuret Pep Total Protein Triglycerides 258 H Urine Occult Blood Ur Leukocyte Esterase Urine RBC Urine WBC Hyaline Casts U [place] Prot/Creat Ratio 03/03/17 03/03/17 03/03/17 06:46 04:15 04:15 WBC RBC Hgb Hct Gran % Lymph % (Auto) Gran # Lymph # [place] # PT 24.2 H INR 2.1 H VBG Lactic Acid Sodium 132 L Potassium 5.8 H 6.3 H* Chloride Carbon Dioxide 21 L 18 L Anion Gap BUN 31 H 28 H Creatinine 1.8 H 1.7 H Glucose 172 H 151 H Calcium 8.3 L 8.4 L Magnesium Lactate Dehydrogenase 304 H NT-Pro-B Natriuret Pep Total Protein Triglycerides 337 H Urine Occult Blood Ur Leukocyte Esterase Urine RBC Urine WBC Hyaline Casts U [place] Prot/Creat Ratio 03/03/17 03/02/17 03/02/17 04:15 22:35 21:20 WBC 26.4 H RBC Hgb Hct Gran % 93.5 H Lymph % (Auto) 2.5 L Gran # 24.6 H Lymph # 0.7 L [place] # 1.0 H PT INR VBG Lactic Acid 3.4 H Sodium Potassium 5.3 H Chloride 92 L Carbon Dioxide Anion Gap 17.0 H BUN 24 H Creatinine 1.5 H Glucose 155 H Calcium Magnesium 1.4 L Lactate Dehydrogenase 339 H NT-Pro-B Natriuret Pep Total Protein Triglycerides 430 H Urine Occult Blood Ur Leukocyte Esterase Urine RBC Urine WBC Hyaline Casts U [place] Prot/Creat Ratio 03/02/17 03/02/17 21:20 21:20 WBC 31.0 H* RBC Hgb Hct Gran % 84.6 H Lymph % (Auto) 3.9 L Gran # 26.2 H Lymph # 1.2 L [place] # 3.4 H PT 23.8 H INR 2.1 H VBG Lactic Acid Sodium Potassium Chloride Carbon Dioxide Anion Gap BUN Creatinine Glucose Calcium Magnesium Lactate Dehydrogenase NT-Pro-B Natriuret Pep Total Protein Triglycerides Urine Occult Blood Ur Leukocyte Esterase Urine RBC Urine WBC Hyaline Casts U [place] Prot/Creat Ratio Meds: Medications Acetaminophen/Hydrocodone Bitart ([place] 5/325mg) 1 tab PO Q4HP PRN PRN Reason: Pain Albuterol/Ipratropium (Duoneb) 3 ml NEB Q4HRT [facility] Last Admin: 03/05/17 07:28 Dose: 3 ml Allopurinol (Zylopriim) 300 mg PO DAILY [facility] Last Admin: 03/04/17 09:13 Dose: Not Given Diagnostic Test (Pha) (Accu-Chek) 1 each FS Q6 [facility] Last Admin: 03/05/17 05:34 Dose: 1 each Famotidine (Pepcid) 20 mg IV Q12 [facility] Last Admin: 03/04/17 20:54 Dose: 20 mg Fluticasone Propionate (Flonase) 1 spray NS DAILY [facility] Last Admin: 03/05/17 07:08 Dose: Not Given Hydromorphone HCl (Dilaudid) 0.5 mg IV Q1HP PRN PRN Reason: Pain Last Admin: 03/05/17 04:55 Dose: 0.5 mg Azithromycin 500 mg/ Dextrose 250 mls @ 250 mls/hr IV DAILY [facility] Stop: 03/05/17 09:59 Last Infusion: 03/04/17 11:19 Dose: Infused Piperacillin Sod/Tazobactam (Sod 3.375 gm/ Dextrose) 50 mls @ 100 mls/hr IV Q8H [facility] Last Infusion: 03/05/17 07:06 Dose: Infused Amiodarone HCl 300 mg/ (Dextrose) 56 mls @ 300 mls/hr IV ONCE ONE Stop: 03/05/17 08:07 Lorazepam (Ativan) 0.5 mg IV Q4-6HP PRN PRN Reason: ANXIETY/SEDATION Last Admin: 03/04/17 03:45 Dose: 0.5 mg Magnesium Hydroxide (Milk Of Magnesia) 30 ml PO DAILYP PRN PRN Reason: Constipation Methylprednisolone Sodium Succinate (Solu-Medrol) 62.5 mg IV Q12 [facility] Naloxone HCl (Narcan) 0.1 mg IV Q2MIN PRN PRN Reason: Opiate Reversal Ondansetron HCl (Zofran) 4 mg IV Q4HP PRN PRN Reason: Nausea And Vomiting Simvastatin (Zocor) 40 mg PO HS [facility] Last Admin: 03/04/17 20:55 Dose: Not Given Medical - PN: A/P - Time Spent With Patient Total time spent is greater than 50% in coordination of care (as documented) at patient's floor/unit and/or counseling patient: - Narrative A/P Narrative: a/p Acute hypoxic Hypercapnic resp failure: Due to copd exacerbation, PNA ( elevated wbc, procalcitonin high) ,ABG done yesterday night 7., will wean off bipap today and see how he does. repeat abg off bipap Respiratory acidosis and non anion gap metabolic acidosis: Due to copd with co2 retention, Saline use and renal failure. much improved repeat abg off bipap Encephalopathy: Etiology? Co2 is normal, will get Head CT, renal faliure? cefepime induced encephalopathy? Pneumonia:Cultures neg, MRSA screen neg, off vanco on zosyn and zithromax, micro still negative. COPD exacerbation: IV steroids, Duonebs q 4 hrs, BIPAP treatment as needed. Abdominal distention: Likely air insuffilation from bipap, get x ray, no stools since admission, give rectal suppository of dulcolax. Hypomagnesemia: replaced Atrial Flutter: BP stable, was on cardizem drip overnight, some improvement but became tachycardic again today, will give IV amiodarone for now. Acute kidney injury: Creat is 2.0 , BUN 50, Urine output ok after dose of lasix yesterday, monitor Nephrology following. Anticoagulation: On Coumadin, dose held, INR therapeutic, hold off on coumadin. Right hip fracture: Ortho following, will need operative intervention, pt will need to be stable first. reviwed with [facility] osteomyelitis history, MRI of the femur ordered, will try to get MRI done today if patient remains ok DVT : will start on hep once INR is subtherapeutic, Last INR is 2.2 Diet cardiac, but pt is not eating much due to encephalopathy. Code DNR, ok to intubate. Spent > 60mins providing critical care, managing bipap, reviewing ABG, X ray chest, Tele,labs, cardizem drips. Medical - PN: Qual - VTE Deep Vein Thrombosis/Pulmonary Embolism Present on Admission: No
--- NOTE | 2017-03-05 09:32 | Cat Scan Report ---
CLINICAL INFORMATION: Decreased level consciousness COMPARISON: None. TECHNIQUE: 2.5 mm helical slices were obtained in the skull base to vertex. Following reconstruction, axial reformatted images were reviewed at bone and parenchymal windows. FINDINGS: The ventricles, sulci, fissures, and cisterns are symmetrically enlarged compatible with mild age-related atrophy - no extra-axial fluid collection or mass appreciated. There is mild chronic ischemic changes in the deep cerebral white matter - expected for age. There is no acute intracerebral hemorrhage, mass effect or edema. Bone windows show no osseous abnormality. IMPRESSION: Mild atrophy and chronic ischemic changes featuring white matter expected for age. No hemorrhage or other acute finding. Interpreted and Authenticated by: Joe Lafleur 03/05/17
--- NOTE | 2017-03-05 09:37 | XRay Report ---
CLINICAL INFORMATION: Abdominal pain and distention COMPARISON: None. FINDINGS: Stomach, small large bowel are moderately dilated most compatible with ileus. There is no free air, soft tissue mass or organomegaly or pathologic calcification. Catheter overlies the central urinary bladder location IMPRESSION: Moderate ileus Interpreted and Authenticated by: Joe Lafleur 03/05/17
[2017-03-05] MEDS ORDERED: AMIODARONE 300 MG in DEXTROSE 5% IN WATER 50 ML IV ONE (09:45)
[2017-03-05] MEDS: CEFEPIME 2 GM in DEXTROSE 5% IN WATER 50 ML IV SCH (09:52)
[2017-03-05] MEDS: AZITHROMYCIN 500 MG in DEXTROSE 5% IN WATER 250 ML IV SCH (09:52)
[2017-03-05] MEDS: ALLOPURINOL 300 MG TABLET PO SCH (10:24)
[2017-03-05] MEDS: AMIODARONE HCL 450 MG in DEXTROSE 5% IN WATER (NON-PVC) 241 ML IV SCH (11:05)
--- NOTE | 2017-03-05 11:53 | XRay Report ---
CLINICAL INFORMATION: PICC placement verification COMPARISON: 03/05/2017 0719 hours. FINDINGS: Moderate cardiomegaly is unchanged. Mediastinum is unremarkable. The pulmonary vessels are now mildly distended. Small/moderate patchy bibasilar infiltrates are unchanged. PICC line tip overlies the SVC right atrial junction. IMPRESSION: 1. No change in small/moderate patchy left basilar infiltrate - suspect aspiration 2. Mild recurrent CHF 3. Right PICC line tip is in satisfactory position Interpreted and Authenticated by: Joe Lafleur 03/05/17
[2017-03-05] MEDS: FAMOTIDINE/PF 20 MG/2 ML VIAL IV SCH ×2 (13:54→21:42)
[2017-03-05] MEDS: 0.9 % SODIUM CHLORIDE 10 ML SYRINGE IV SCH ×3 (13:57→21:43)
[2017-03-05] MEDS ORDERED: MIDAZOLAM 5 MG/5 ML VIAL IV ONE (14:17)
[2017-03-05] MEDS ORDERED: fentaNYL 100 MCG/2 ML VIAL IV ONE (14:18)
[2017-03-05] MEDS ORDERED: MIDAZOLAM 2 MG/2 ML VIAL IV ONE (14:30)
--- NOTE | 2017-03-05 15:09 | Nephrology Progress Note ---
Subjective Patient information: Note initiated : 03/05/17 at 3:07 pm Service Date, if different from initiated Date: [] Patient: Trey Stock 86 y/o M admitted on 03/02/17 for Right Hip Fracture, Fall. Chief Complaint: [] Principal diagnosis: hip fracture Interval history: Patient continues to have altered mental status He continues to have rapid ventricular rate on diltiazem gtt BP remains stable good response to IV lasix, non oliguric with renal function slowly getting worse , no further hyperkalemia still unstable to get his hip fracture fixed Pertinent ROS: unable to obtain due to patient's mental status Objective - Vital Signs Vital signs: Vital Signs Temp Pulse Pulse Pulse Resp BP BP 03/05/17 14:00 129 H 20 151/80 03/05/17 13:00 88 20 132/61 03/05/17 12:00 97.5 F L 86 18 127/71 03/05/17 11:00 123 H 18 139/81 03/05/17 10:00 131 H 18 149/82 03/05/17 09:00 110 H 130 H 135/72 03/05/17 08:00 97.5 F L 132 H 18 148/78 03/05/17 07:42 134 H 12 03/05/17 07:29 125 H 18 03/05/17 07:00 97.5 F L 132 H 14 143/78 03/05/17 06:00 16 133/63 03/05/17 05:00 91 H 18 146/66 03/05/17 04:45 12 155/66 03/05/17 04:30 12 116/78 03/05/17 04:15 12 144/66 03/05/17 04:00 97.9 F 14 149/56 03/05/17 03:07 88 11 L 03/05/17 03:00 12 107/61 03/05/17 02:45 12 113/67 03/05/17 02:40 12 97/46 03/05/17 02:20 12 115/54 03/05/17 02:00 10 L 156/57 03/05/17 01:00 88 19 138/59 03/05/17 00:00 97.4 F L 88 16 108/68 03/04/17 23:00 88 96 H 16 121/63 03/04/17 22:00 12 123/58 03/04/17 21:58 88 20 03/04/17 21:00 12 114/63 03/04/17 20:30 12 122/61 03/04/17 20:00 98.0 F 88 13 117/56 03/04/17 19:30 10 L 121/62 03/04/17 19:28 03/04/17 19:27 98 H 18 03/04/17 19:10 14 128/82 03/04/17 19:05 12 116/66 03/04/17 18:55 12 137/67 03/04/17 18:50 12 132/81 03/04/17 18:45 12 138/96 03/04/17 18:40 12 120/87 03/04/17 18:38 12 137/69 03/04/17 18:16 11 L 152/72 03/04/17 18:15 03/04/17 18:00 22 152/72 03/04/17 17:58 121 H 19 03/04/17 17:00 18 135/86 03/04/17 16:00 97.8 F 129 H 15 133/65 03/04/17 15:35 90 14 03/04/17 15:34 93 H 15 Pulse Ox 03/05/17 14:00 93 03/05/17 13:00 92 03/05/17 12:00 93 03/05/17 11:00 91 03/05/17 10:00 90 03/05/17 09:00 03/05/17 08:00 91 03/05/17 07:42 99 03/05/17 07:29 03/05/17 07:00 91 03/05/17 06:00 95 03/05/17 05:00 95 03/05/17 04:45 97 03/05/17 04:30 97 03/05/17 04:15 97 03/05/17 04:00 97 03/05/17 03:07 94 03/05/17 03:00 94 03/05/17 02:45 91 03/05/17 02:40 93 03/05/17 02:20 92 03/05/17 02:00 97 03/05/17 01:00 94 03/05/17 00:00 97 03/04/17 23:00 92 03/04/17 22:00 91 03/04/17 21:58 93 03/04/17 21:00 91 03/04/17 20:30 92 03/04/17 20:00 94 03/04/17 19:30 92 03/04/17 19:28 91 03/04/17 19:27 03/04/17 19:10 90 03/04/17 19:05 92 03/04/17 18:55 94 03/04/17 18:50 94 03/04/17 18:45 92 03/04/17 18:40 94 03/04/17 18:38 93 03/04/17 18:16 93 03/04/17 18:15 93 03/04/17 18:00 95 03/04/17 17:58 94 03/04/17 17:00 95 03/04/17 16:00 94 03/04/17 15:35 96 03/04/17 15:34 Intake and Output 03/05/17 03/05/17 03/05/17 05:59 13:59 21:59 Intake Total 55 / 55 1484 / 1484 Output Total 490 / 490 60 / 60 Balance -435 / -435 1424 / 1424 Intake: IV 55 / 55 1484 / 1484 Cordarone 300 mg In 56 / 56 Dextrose 5% in Water 50 ml @ 300 mls/hr IV ONCE ONE Rx#:[id number] Zithromax 500 mg In 250 / 250 Dextrose 5% in Water 250 ml @ 250 mls/hr IV DAILY [facility] Rx#:[id number] Cardizem 125 mg In Sodium 5 / 5 78 / 78 Chloride 0.9% 100 ml @ 5 MG/HR 5 mls/hr IV Q12H [facility] Rx#:[id number] Zosyn 3.375 gm In 50 / 50 50 / 50 Dextrose 5% in Water 50 ml @ 100 mls/hr IV Q8H [facility] Rx#:[id number] Output: Urine Catheter Amount 490 / 490 60 / 60 Void Amount 0 / 0 Other: Weight 204 lb 14.4 oz Patient Weight 03/06/17 05:59 Weight 204 lb 14.4 oz Intake & Output: Intake & Output 03/05/17 03/05/17 03/05/17 05:59 13:59 21:59 Intake Total 55 / 55 1484 / 1484 Output Total 490 / 490 60 / 60 Balance -435 / -435 1424 / 1424 Weight 204 lb 14.4 oz Intake: IV 55 / 55 1484 / 1484 Cordarone 300 mg In 56 / 56 Dextrose 5% in Water 50 ml @ 300 mls/hr IV ONCE ONE Rx#:[id number] Zithromax 500 mg In 250 / 250 Dextrose 5% in Water 250 ml @ 250 mls/hr IV DAILY [facility] Rx#:[id number] Cardizem 125 mg In Sodium 5 / 5 78 / 78 Chloride 0.9% 100 ml @ 5 MG/HR 5 mls/hr IV Q12H [facility] Rx#:[id number] Zosyn 3.375 gm In 50 / 50 50 / 50 Dextrose 5% in Water 50 ml @ 100 mls/hr IV Q8H [facility] Rx#:[id number] Output: Urine Catheter Amount 490 / 490 60 / 60 Void Amount 0 / 0 - General Appearance General appearance: appears started age, obese EENT: mucous membranes moist Neck: no JVD Respiratory: rales Cardiology: no rub, no edema, irregular rhythm Gastrointestinal: no tenderness, no guarding Integumentary: warm and dry Neurologic: confused Musculoskeletal: no erythema, no cyanosis - Lab 03/05/17 04:15 03/05/17 04:15 Most recent lab results Calcium 8.9 mg/dl (8.6-10.4) 03/05/17 04:15 Phosphorus 2.9 mg/dL (2.7-4.5) 03/05/17 04:15 Magnesium 1.9 mg/dL (1.6-2.5) 03/05/17 04:15 Assessment and Plan (1) Acute renal failure s.creatinine trending up from 1.5-1.7-2.0 mild acidosis with elevated a gap no hyperkalemia fluid status stable 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
[2017-03-05] MEDS ORDERED: 0.9 % SODIUM CHLORIDE 10 ML SYRINGE IV PRN (16:50)
[2017-03-05] MEDS: METOPROLOL TARTRATE 5 MG/5 ML VIAL IV SCH ×3 (17:24→17:47)
--- NOTE | 2017-03-05 17:29 | Magnetic Resonance Report ---
CLINICAL INFORMATION: Prior history of osteomyelitis the mid diaphysis. Evaluate for active infection COMPARISON: Plain films from 03/03/2017. TECHNIQUE: Axial T1, T2 and coronal T1 STIR and sagittal T1 STIR images were obtained the pelvis and right femur FINDINGS: There is mild fusiform expansion of the mid femoral diaphysis in the former region of infection. The marrow signal in this region is normal, however. There is no increased T2 or STIR signal to suggest active inflammation. The cortex, although although expanded and remodeled, is merely eroded nor inflamed. There is a linear scar extending from the lateral skin to the lateral cortex of the femur. This may have been the site of prior sinus tract. Apparently is no evidence of drainage, also the tract does not appear to be inflamed on MRI Nondisplaced acute intertrochanteric fracture of the right hip is again noted. There is mild intramedullary edema adjacent to the fracture - as expected. Also edema seen in the perihip musculature compatible with posttraumatic contusion. Both hips are normal in width and alignment without arthritic change. IMPRESSION: 1. No MR evidence of active osteomyelitis. 2. Acute nondisplaced intertrochanteric fracture of the right hip. Mild edema in the periarticular musculature would be compatible with post traumatic nonhemorrhagic muscle contusion. Interpreted and Authenticated by: Joe Lafleur 03/05/17
[2017-03-05 17:36] LABS: Basophils # (Auto) 0 K/mcL (0.0-0.3); Basophils % (Auto) 0 % (0.0-2.0); Blood Urea Nitrogen 52 mg/dl (8-23); Eosinophils # (Auto) 0 K/mcL (0.0-0.7); Eosinophils % (Auto) 0 % (0.0-7.0); Granulocytes % (Auto) 91.7 % (38.0-78.0); Lymphocytes # (Auto) 0.2 K/mcL (1.5-4.8); Lymphocytes % (Auto) 1.1 % (15.5-49.0); Mean Cell Volume 96.3 fL (80.0-100.0); Mean Corpuscular Hemoglobin 30.9 pg (26.0-34.0); Monocytes # (Auto) 1.7 K/mcL (0.1-0.9); Monocytes % (Auto) 7.2 % (1.0-12.0); Platelet Count 163 K/mcL (140-440); RBC 3.83 M/mcL (4.50-5.90)
[2017-03-05] MEDS: SIMVASTATIN 40 MG TABLET PO SCH (20:41)
[2017-03-06] MEDS: HYDROmorphone 2 MG/ML SYRINGE IV PRN ×6 (00:35→21:40)
[2017-03-06] MEDS: IPRATROPIUM/ALBUTEROL 3 ML AMPUL.NEB NEB SCH ×6 (03:13→22:46)
[2017-03-06] MEDS ORDERED: HYDROmorphone 2 MG/ML SYRINGE ONE (04:12)
[2017-03-06] MEDS: 0.9 % SODIUM CHLORIDE 10 ML SYRINGE IV SCH ×3 (05:04→22:01)
[2017-03-06] MEDS: PIPERACILLIN SODIUM/TAZOBACTAM 3.375 GM in DEXTROSE 5% IN WATER 50 ML IV SCH ×3 (05:04→22:01)
[2017-03-06 06:02] LABS: ALT/SGPT 17 U/l (0-40); Albumin 3.8 gm/dL (3.2-5.2); Albumin/Globulin Ratio 1.6 (1.0-2.3); Alkaline Phosphatase 49 U/L (39-117); Bilirubin,Direct 0.2 mg/dL (0.0-0.3); Blood Urea Nitrogen 48 mg/dl (8-23); Gamma Glutamyl Transpeptidase 46 U/L (8-61); Uric Acid 5.8 mg/dL (2.5-8.0)
[2017-03-06 06:05] LABS: Basophils # (Auto) 0 K/mcL (0.0-0.3); Basophils % (Auto) 0 % (0.0-2.0); Eosinophils # (Auto) 0 K/mcL (0.0-0.7); Eosinophils % (Auto) 0.2 % (0.0-7.0); Granulocytes % (Auto) 93.2 % (38.0-78.0); Lymphocytes # (Auto) 0.3 K/mcL (1.5-4.8); Lymphocytes % (Auto) 1.4 % (15.5-49.0); Mean Cell Volume 94.8 fL (80.0-100.0); Mean Corpuscular HGB Conc 34.2 g/dL (31.0-36.0); Mean Corpuscular Hemoglobin 32.4 pg (26.0-34.0); Monocytes # (Auto) 1.2 K/mcL (0.1-0.9); Monocytes % (Auto) 5.2 % (1.0-12.0); Platelet Count 147 K/mcL (140-440); RBC 3.89 M/mcL (4.50-5.90); Red Cell Distribution Width 13.3 % (11.5-14.5)
[2017-03-06] MEDS: AMIODARONE HCL 450 MG in DEXTROSE 5% IN WATER (NON-PVC) 241 ML IV SCH (07:22)
[2017-03-06] MEDS: METOPROLOL TARTRATE 5 MG/5 ML VIAL IV SCH ×5 (07:25→22:46)
[2017-03-06] MEDS ORDERED: POTASSIUM CHLORIDE 40 MEQ in DEXTROSE 5% IN WATER 250 ML IV ONE (08:03)
[2017-03-06] MEDS: FAMOTIDINE/PF 20 MG/2 ML VIAL IV SCH ×2 (08:29→20:49)
[2017-03-06] MEDS: FLUTICASONE PROPIONATE SPRAY.NAS NS SCH (08:30)
[2017-03-06] MEDS: ALLOPURINOL 300 MG TABLET PO SCH (08:30)
[2017-03-06] MEDS: methylPREDNISolone SOD SUCC 125 MG/2 ML VIAL IV SCH (08:34)
--- NOTE | 2017-03-06 08:50 | XRay Report ---
CLINICAL INFORMATION: Abdominal pain and distention follow-up ileus COMPARISON: 03/05/2017 FINDINGS: The stomach, small bowel and colon, including the rectum, are more dilated on today's study. There is no free air, soft tissue mass, organomegaly or pathologic calcification IMPRESSION: Moderate distention of the small large bowel - progressing from yesterday. Findings compatible with worsening ileus. Interpreted and Authenticated by: Joe Lafleur 03/06/17
--- NOTE | 2017-03-06 09:25 | Internal Med Progress Note ---
Medical - PN: Subj Patient information: Note initiated : 03/06/17 at 9:20 am Service Date, if different from initiated Date: [] Patient: Trey Stock 86 y/o M admitted on 03/02/17 for Right Hip Fracture, Fall. Chief Complaint: [] Interval history: Mr. Stock is a 86 year old male with h/o copd, on chr prednisone, CAD s/p CABG 25 yrs ago, Afib/ Flutter on coumadin and toporol presented to outside hospital ER with a mechanical fall. The patient reports that he was changing a bin in his yard, likely moving it to the truck, when he slipped and fell. He was taken to the ER and was noted to have right femur fracture. The patient was then transported to the [facility] ER. His labs were reported to be unremarkable besides creat of 1.5, and HR 125 in flutter which was thought to be due to pain from the fracture. The patient was admitted to medical floors for further management. On my evaluation the patient denies any other complaints, notes chr sob on activity, denies any fever or chills. The patient however clinically appeared tachypenic, and did not answer my questions coherently. The patients oxygen level was log and on RA dropped as low as 82%. We got an ABG and noted his PH 7.29/ 61/53, the exam also showed lee prolonged exp phase, and lee wheezing with decreased air entry. Patient xray suggestive of pna, ? CHF, admitted to MICU for acute resp failure, copd exacerbation. 03/03 : Pt seen examined, overnight events noted. Pt remains on BIPAP, with good tidal volume, mental status ok, but patient still is acidotic with co2 retention. His ABG this AM Was worse than last night, changes to bipap made. pt also noted to have oligouria, worsening kidney function and hyperkalemia. Nephrology consulted, renal usg ordered. Pt remains tachycardic in flutter. the patient labs show worsening lecocytosis 15 K in [place], 30K last night, He was on IV vancom and cefepime, MRSA screen was neg, vanco stopped. Zithromax added for atypical coverage given h/o copd. Pt cultures are neg so far. Not cleared for surgery given acute resp failure. was able to review old echo and old notes, normal lvef noted, and he seems to be intermittently dependent on oxygen from his Copd stand point. 03/04 Pt seen examined, was restless in the night with response to dialudid and ativan, sleeping comfortably this AM, labs reviewed, WBC mildly increased, lactate 2.2, creat 1.8, BUN 41, K 5.2, Urine output was good yesterday evening but tapering down again. The patient has lee wheezing and poor air movement. ABG / Mixed gas shows ph of 7.23/ 57 HR mildly tachycardic and responded well to metoprolol 5mg x 3, BP remains stable. Remains on bipap, settings advanced to 18/10, Fio2 32%. I reviewed his case with his family, explained to them the poor prognosis given age With regards to his femur fracture, he is not yet ok to undergo surgery ,given his acute copd exacerbation. His X ray chest is being reported as CHF however the patient does not have edema feet, clinically was not grossly fluid overloaded, He also has elevated Procalcitonin, which would all favor a pneumonia like picture, likely in conjunction with copd and mild chf. 03/05 Pt seen examined, overnight events noted, pt remains altered, encephalopathic, does not follow commands, His wbc count is up, today to 28K ( new infection vs steroid use) , ABG last night was good. He will be weaned off bipap today to see if he can maintain his ventilation off resp support He remains critically sick and not a candidate for surgery yet. MRI of the right femur pending, if he is off bipap we may consider getting that today. Head CT pending, X ray abdomen pending. His HR is variable, on cardizem drip, with good response overnight, but this AM again is tachycardic, Will stop same and start on amiodarone IV . Good urine output overnight. 03/06 Pt seen examined, mental status remains basically unchanged, his abdomen is distended. remains non verbral (CT head is negative) . HR still intermittently high, despite being on amiodarone. improves with IV metoprolol. Start on metoprolol 5mg q6hrs. HIs Abdomen x ray shows worsening ileus, will give pt soap stud enema, and Place NG to wall suction. get ABG today. MRI femur reviewed, no infection reported. Labs show some improvement in renal function, urine output is maintained. family is being updated on progress on daily basis. Pertinent ROS: unable - Constitutional Vitals: Vital Signs Temp Pulse Resp BP Pulse Ox 98.1 F 137 H 11 L 163/86 94 03/06/17 07:00 03/06/17 07:05 03/06/17 07:05 03/06/17 07:00 03/06/17 07:03 Period Temp Pulse Resp BP Sys/Gomez Pulse Ox Last 24 Hr 97.5 F-98.6 F 86-137 11-22 98-166/48-128 90-100 Intake and Output 03/05/17 03/06/17 03/06/17 21:59 05:59 13:59 Intake Total 50 / 50 50 / 50 300 / 300 Output Total 580 / 580 535 / 535 45 / 45 Balance -530 / -530 -485 / -485 255 / 255 Weight 200 lb 3.2 oz Intake & Output: Intake & Output 03/05/17 03/06/17 03/06/17 21:59 05:59 13:59 Intake Total 50 / 50 50 / 50 300 / 300 Output Total 580 / 580 535 / 535 45 / 45 Balance -530 / -530 -485 / -485 255 / 255 Weight 200 lb 3.2 oz Intake: IV 50 / 50 50 / 50 300 / 300 Amiodarone HCl 450 mg In 250 / 250 Dextrose 5% in Water (Non -Pvc) 241 ml @ 13.88 mls/ hr IV Q18H [facility] Rx#: [id number] Zosyn 3.375 gm In 50 / 50 50 / 50 50 / 50 Dextrose 5% in Water 50 ml @ 100 mls/hr IV Q8H [facility] Rx#:[id number] Output: Urine Catheter Amount 580 / 580 535 / 535 45 / 45 Exam: Constitutional; Afebrile, confused, does not follow commands. Eyes- No icterus, , No periorbital swelling Ears- Ext ear normal, Neck- Midline trachea, supple Respiratory system: Air Entry equal on both sides, No crackles or wheezing, no rhonchi. CVS- Rate tachycardic, rhythm irregular. 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 does not obey commands. Medical - PN: Obj Da - Labs CBC & Chem 7: 03/06/17 04:09 03/06/17 04:09 Labs: Abnormal Lab Results 03/06/17 03/06/17 03/06/17 04:09 04:09 04:09 WBC 22.8 H RBC 3.89 L Hgb 12.6 L Hct 36.9 L Gran % 93.2 H Lymph % (Auto) 1.4 L Gran # 21.3 H Lymph # 0.3 L [place] # 1.2 H PT 24.3 H INR 2.1 H VBG Lactic Acid Potassium Carbon Dioxide 21 L Anion Gap 17.0 H BUN 48 H Creatinine 1.8 H Glucose 192 H Calcium Phosphorus 2.5 L Lactate Dehydrogenase 274 H NT-Pro-B Natriuret Pep Total Protein Triglycerides 283 H Urine Occult Blood Ur Leukocyte Esterase Urine RBC Urine WBC Hyaline Casts U [place] Prot/Creat Ratio 03/05/17 03/05/17 03/05/17 16:42 16:42 04:15 WBC 23.1 H RBC 3.83 L Hgb 11.8 L Hct 36.9 L Gran % 91.7 H Lymph % (Auto) 1.1 L Gran # 21.2 H Lymph # 0.2 L [place] # 1.7 H PT INR VBG Lactic Acid Potassium Carbon Dioxide 19 L Anion Gap 19.0 H BUN 52 H 50 H Creatinine 1.9 H 2.0 H Glucose 187 H 186 H Calcium Phosphorus Lactate Dehydrogenase NT-Pro-B Natriuret Pep Total Protein Triglycerides 355 H Urine Occult Blood Ur Leukocyte Esterase Urine RBC Urine WBC Hyaline Casts U [place] Prot/Creat Ratio 03/05/17 03/05/17 03/04/17 04:15 04:15 16:25 WBC 28.4 H RBC 3.95 L Hgb 12.3 L Hct 38.1 L Gran % 92.6 H Lymph % (Auto) 1.2 L Gran # 26.3 H Lymph # 0.3 L [place] # 1.8 H PT 25.3 H INR 2.2 H VBG Lactic Acid Potassium Carbon Dioxide 18 L Anion Gap 21.0 H BUN 46 H Creatinine 2.0 H Glucose 178 H Calcium Phosphorus Lactate Dehydrogenase NT-Pro-B Natriuret Pep Total Protein Triglycerides Urine Occult Blood Ur Leukocyte Esterase Urine RBC Urine WBC Hyaline Casts U [place] Prot/Creat Ratio 03/04/17 03/04/17 03/04/17 04:05 04:05 04:05 WBC RBC Hgb Hct Gran % Lymph % (Auto) Gran # Lymph # [place] # PT 25.9 H INR 2.3 H VBG Lactic Acid Potassium 5.2 H Carbon Dioxide 19 L Anion Gap BUN 41 H Creatinine 1.8 H Glucose 170 H Calcium 8.3 L Phosphorus Lactate Dehydrogenase NT-Pro-B Natriuret Pep 2978.0 H Total Protein 5.8 L Triglycerides 235 H Urine Occult Blood Ur Leukocyte Esterase Urine RBC Urine WBC Hyaline Casts U [place] Prot/Creat Ratio 03/04/17 03/03/17 03/03/17 04:05 18:41 18:39 WBC 21.6 H RBC 3.92 L Hgb 12.2 L Hct 38.1 L Gran % 93.4 H Lymph % (Auto) 2.5 L Gran # 20.2 H Lymph # 0.5 L [place] # PT INR VBG Lactic Acid Potassium Carbon Dioxide Anion Gap BUN Creatinine Glucose Calcium Phosphorus Lactate Dehydrogenase NT-Pro-B Natriuret Pep Total Protein Triglycerides Urine Occult Blood >=1.0 A Ur Leukocyte Esterase 75 A Urine RBC 108 H Urine WBC 13 H Hyaline Casts 4 H U [place] Prot/Creat Ratio 0.25 H 03/03/17 03/03/17 03/03/17 17:57 17:57 15:57 WBC 20.2 H RBC 3.97 L Hgb 12.5 L Hct 39.0 L Gran % 94.4 H Lymph % (Auto) 2.1 L Gran # 19.0 H Lymph # 0.4 L [place] # PT INR VBG Lactic Acid 2.7 H Potassium Carbon Dioxide 20 L Anion Gap BUN 35 H Creatinine 1.7 H Glucose 164 H Calcium 8.0 L Phosphorus Lactate Dehydrogenase NT-Pro-B Natriuret Pep Total Protein Triglycerides Urine Occult Blood Ur Leukocyte Esterase Urine RBC Urine WBC Hyaline Casts U [place] Prot/Creat Ratio 03/03/17 03/03/17 09:37 09:37 WBC RBC Hgb Hct Gran % Lymph % (Auto) Gran # Lymph # [place] # PT INR VBG Lactic Acid 3.5 H Potassium Carbon Dioxide 19 L Anion Gap 18.0 H BUN 30 H Creatinine 1.7 H Glucose 192 H Calcium 8.2 L Phosphorus Lactate Dehydrogenase NT-Pro-B Natriuret Pep Total Protein Triglycerides 258 H Urine Occult Blood Ur Leukocyte Esterase Urine RBC Urine WBC Hyaline Casts U [place] Prot/Creat Ratio Meds: Medications Acetaminophen/Hydrocodone Bitart ([place] 5/325mg) 1 tab PO Q4HP PRN PRN Reason: Pain Albuterol/Ipratropium (Duoneb) 3 ml NEB Q4HRT [facility] Last Admin: 03/06/17 07:05 Dose: 3 ml Allopurinol (Zylopriim) 300 mg PO DAILY [facility] Last Admin: 03/06/17 08:30 Dose: Not Given Diagnostic Test (Pha) (Accu-Chek) 1 each FS Q6 [facility] Last Admin: 03/06/17 06:05 Dose: 1 each Famotidine (Pepcid) 20 mg IV Q12 [facility] Last Admin: 03/06/17 08:29 Dose: 20 mg Fluticasone Propionate (Flonase) 1 spray NS DAILY [facility] Last Admin: 03/06/17 08:30 Dose: Not Given Heparin Sodium (Porcine) (Heparin Flush) 2 ml IV Q12 [facility] Last Admin: 03/06/17 08:30 Dose: 2 ml Hydromorphone HCl (Dilaudid) 1 mg IV Q2HP PRN PRN Reason: Pain Last Admin: 03/06/17 07:20 Dose: 1 mg Piperacillin Sod/Tazobactam (Sod 3.375 gm/ Dextrose) 50 mls @ 100 mls/hr IV Q8H [facility] Last Infusion: 03/06/17 06:30 Dose: Infused Amiodarone HCl 450 mg/ (Dextrose) 250 mls @ 13.88 mls/hr IV Q18H [facility] PRN Reason: Protocol Stop: 03/06/17 09:59 Last Admin: 03/06/17 07:22 Dose: 13.88 mls/hr Potassium Chloride 40 meq/ (Dextrose) 270 mls @ 67.5 mls/hr IV ONCE ONE Stop: 03/06/17 12:02 Last Admin: 03/06/17 08:31 Dose: 67.5 mls/hr Lorazepam (Ativan) 0.5 mg IV Q4-6HP PRN PRN Reason: ANXIETY/SEDATION Last Admin: 03/04/17 03:45 Dose: 0.5 mg Magnesium Hydroxide (Milk Of Magnesia) 30 ml PO DAILYP PRN PRN Reason: Constipation Methylprednisolone Sodium Succinate (Solu-Medrol) 62.5 mg IV DAILY [facility] Last Admin: 03/06/17 08:34 Dose: 62.5 mg Metoprolol Tartrate (Lopressor) 5 mg IV Q6H [facility] Naloxone HCl (Narcan) 0.1 mg IV Q2MIN PRN PRN Reason: Opiate Reversal Ondansetron HCl (Zofran) 4 mg IV Q4HP PRN PRN Reason: Nausea And Vomiting Simvastatin (Zocor) 40 mg PO HS [facility] Last Admin: 03/05/17 20:41 Dose: Not Given Sodium Chloride (Saline Flush) 10 ml IV Q8 [facility] Last Admin: 03/06/17 05:04 Dose: 10 ml Sodium Chloride (Saline Flush) 10 ml IV UD PRN PRN Reason: FLUSH Medical - PN: A/P - Time Spent With Patient Total time spent is greater than 50% in coordination of care (as documented) at patient's floor/unit and/or counseling patient: - Narrative A/P Narrative: a/p Acute hypoxic Hypercapnic resp failure: Due to copd exacerbation, PNA ( elevated wbc, procalcitonin high), has remained off bipap, and maintaining oxygen saturations. Will repeat ABG today Leucocytosis: Etiology likely pna, wbc improving, steroids also confounding. The patient has distention of abdomen, no stool output, plan for enema and if we have stools will send it for Cdiff. Encephalopathy: Etiology? Co2 is normal, CT head negative, renal failure? cefepime induced encephalopathy? vs florid delirum, Monitor for now, Pneumonia:Cultures neg, MRSA screen neg, off vanco on zosyn and zithromax, micro still negative. WBC improving, COPD exacerbation: IV steroids, Duonebs q 4 hrs, off bipap now, keep on stand by Abdominal distention: Ileus, NPO , NG tube to wall suction. , soap s tud enema, replace electrolytes. Hypokalemia: Replace K Hypomagnesemia: replaced Atrial Flutter: Amiodarone drip, done x 24 hr s,ok response, IV metoprolol scheduled q 6 hrs, multifactorial, increase dose of pain meds to ensure that hip pain is not contributing to tachcyardia. Acute kidney injury: Creat is improved to 1.8, BUN down to 48, stable urine output, Nephrology following. Anticoagulation: On Coumadin, dose held, INR therapeutic, hold off on coumadin. Right hip fracture: Ortho following, will need medical stabilization before surgery is contemplated. DVT : will start on hep once INR is subtherapeutic, Last INR is 2.2 Diet cardiac, NPO Code DNR, ok to intubate. Spent > 60mins providing critical care, managing drips, IV medications,, reviewing ABG, , Tele,labs, NG tube and suction. and family counselling. Medical - PN: Qual - VTE Deep Vein Thrombosis/Pulmonary Embolism Present on Admission: No
[2017-03-06 09:31] LABS: M. Pneumoniae IGG 3.82 ISR
[2017-03-06 09:31] LABS: Legionella pneumophilia Ag, Ur NOT DETECTED
--- NOTE | 2017-03-06 12:02 | XRay Report ---
CLINICAL INFORMATION: NG position COMPARISON: None. FINDINGS: NG tip is coiled in the gastric fundus. Stomach, small large bowel are moderately dilated most compatible with ileus. No free air IMPRESSION: Moderate ileus pattern. NG tube tip overlies the gastric fundus. Consider: Abdomen and pelvic CT to ensure the absence of bowel obstruction Interpreted and Authenticated by: Joe Lafleur 03/06/17
[2017-03-06] MEDS ORDERED: METOPROLOL TARTRATE 5 MG/5 ML VIAL IV SCH (14:00)
[2017-03-06] MEDS ORDERED: METOPROLOL TARTRATE 5 MG/5 ML VIAL IV ONE (17:33)
[2017-03-06] MEDS: SIMVASTATIN 40 MG TABLET PO SCH (20:49)
[2017-03-07] MEDS: HYDROmorphone 2 MG/ML SYRINGE IV PRN ×8 (01:15→22:01)
[2017-03-07] MEDS: IPRATROPIUM/ALBUTEROL 3 ML AMPUL.NEB NEB SCH ×4 (02:59→18:36)
[2017-03-07] MEDS: METOPROLOL TARTRATE 5 MG/5 ML VIAL IV SCH ×4 (05:01→23:08)
[2017-03-07] MEDS: 0.9 % SODIUM CHLORIDE 10 ML SYRINGE IV SCH ×3 (05:33→22:02)
[2017-03-07] MEDS: PIPERACILLIN SODIUM/TAZOBACTAM 3.375 GM in DEXTROSE 5% IN WATER 50 ML IV SCH (05:39)
[2017-03-07 05:53] LABS: Basophils # (Auto) 0 K/mcL (0.0-0.3); Basophils % (Auto) 0 % (0.0-2.0); Eosinophils # (Auto) 0 K/mcL (0.0-0.7); Eosinophils % (Auto) 0 % (0.0-7.0); Granulocytes % (Auto) 90.7 % (38.0-78.0); Lymphocytes # (Auto) 0.3 K/mcL (1.5-4.8); Lymphocytes % (Auto) 1.7 % (15.5-49.0); Mean Corpuscular HGB Conc 33.2 g/dL (31.0-36.0); Mean Corpuscular Hemoglobin 32.6 pg (26.0-34.0); Monocytes # (Auto) 1.4 K/mcL (0.1-0.9); Monocytes % (Auto) 7.6 % (1.0-12.0); Platelet Count 145 K/mcL (140-440); RBC 3.86 M/mcL (4.50-5.90); Red Cell Distribution Width 14.4 % (11.5-14.5)
[2017-03-07 06:34] LABS: ALT/SGPT 21 U/l (0-40); Albumin 3.8 gm/dL (3.2-5.2); Albumin/Globulin Ratio 1.7 (1.0-2.3); Alkaline Phosphatase 46 U/L (39-117); Bilirubin,Direct 0.2 mg/dL (0.0-0.3); Blood Urea Nitrogen 48 mg/dl (8-23); Gamma Glutamyl Transpeptidase 49 U/L (8-61); Uric Acid 5.8 mg/dL (2.5-8.0)
[2017-03-07] MEDS ORDERED: POTASSIUM PHOSPHATE 20 MEQ in DEXTROSE 5% IN WATER 250 ML IV ONE (07:16)
--- NOTE | 2017-03-07 07:29 | Internal Med Progress Note ---
Medical - PN: Subj Patient information: Note initiated : 03/07/17 at 7:29 am Service Date, if different from initiated Date: [] Patient: Trey Stock 86 y/o M admitted on 03/02/17 for Right Hip Fracture, Fall. Chief Complaint: hip fx/sepsis Mr. 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 The patient reports that he was changing a bin in his yard, likely moving it to the truck, when he slipped and fell. He was taken to the ER and was noted to have right femur fracture. The patient was then transported to the [facility] ER. His labs were reported to be unremarkable besides creat of 1.5, and HR 125 in flutter which was thought to be due to pain from the fracture. The patient was admitted to medical floors for further management. He was found to have acute hypoxic hypercapneic respiratory failure attributed to pneumonia and COPD exacerbation. He was admitted to the MICU on 03/02 for bipap treatment and started on steroids, vancomycin, cefepime and azithromycin. Vancomycin was discontinued after his MRSA swab was negative. Echo was suggestive of volume overload with suspected increased CVP. He developed oliguric renal failure with peak Cr of 2.0. Nephrology is following. Renal US was c/w CKD; no obstruction noted. His Cr and UOP are improving. He has had persistent a flutter with RVR that has been responsive to IV Dilaudid. He has been trialed on diltiazem drip, amio bolus and drip and was transitioned / to IV metoprolol. The dose was increased to 10mg q 6 due to persistent RVR. He has received K and Phos replacement. His course has been further complicated by ileus--presumed 2/[address] with contrast is pending to evaluate possible obstruction. NGT was placed 03/06 with some decompression noted on exam. He has had delirium, manifested primarily by somnolence and worsened by the opiates that are necessary for pain control of his hip and heart rate. He is ultimately planned for IM pinning of his hip when medically cleared. With all the current co-morbidities he remains a poor surgical candidate with a poor prognosis overall. 5/6: HR controlled better with IV Dilaudid than increasing dose of metoprolol. Mild improvement in mental status; makes eye contact with significant verbal and tactile stimuli (nail bed pressure). Has had ~400cc of dark output from NG tube and belly is softer today. Pertinent ROS: unable to obtain 2/2 pt's AMS - Constitutional Vitals: Vital Signs Temp Pulse Resp BP Pulse Ox 97.7 F 111 H 12 143/97 96 03/07/17 04:00 03/07/17 07:15 03/07/17 07:15 03/07/17 07:00 03/07/17 07:00 Period Temp Pulse Resp BP Sys/Gomez Pulse Ox Last 24 Hr 96.8 F-98.5 F 75-141 8-24 127-191/67-121 90-97 Intake and Output 03/06/17 03/07/17 03/07/17 21:59 05:59 13:59 Intake Total 50 / 50 50 / 50 50 / 50 Output Total 795 / 795 810 / 810 45 / 45 Balance -745 / -745 -760 / -760 5 / 5 Weight 204 lb 14.4 oz Intake & Output: Intake & Output 03/06/17 03/07/17 03/07/17 21:59 05:59 13:59 Intake Total 50 / 50 50 / 50 50 / 50 Output Total 795 / 795 810 / 810 45 / 45 Balance -745 / -745 -760 / -760 5 / 5 Weight 204 lb 14.4 oz Intake: IV 50 / 50 50 / 50 50 / 50 Zosyn 3.375 gm In 50 / 50 50 / 50 50 / 50 Dextrose 5% in Water 50 ml @ 100 mls/hr IV Q8H [facility] Rx#:[id number] Output: Urine Catheter Amount 795 / 795 810 / 810 45 / 45 Other: # Bowel Movements 2 Exam: elderly, somnolent, appears comfortable, abdominal breathing - Respiratory Additional comments: irregular breathing pattern with pauses, exp wheeze bilaterally, no crackles ( anteriorly) - Cardiovascular Cardiovascular exam: Present: tachycardia Additional comments: tele reviewed and shows a flutter rate of 103 - GI/Abdominal Additional comments: softer than yesterday but still distended. +BT, occasional tinkling - Extremities Exam Extremities exam: Absent: pedal edema - Neurological Exam Additional comments: somnolent. Will make eye contact with significant verbal and tactile stimuli. Moves all 4 extremities spontaneously but not to command - Skin Skin exam: Present: dry, warm Medical - PN: Obj Da - Labs CBC & Chem 7: 03/07/17 04:05 03/07/17 04:05 Labs: Abnormal Lab Results 03/07/17 03/07/17 03/07/17 04:05 04:05 04:05 WBC 18.5 H RBC 3.86 L Hgb 12.6 L Hct 37.9 L Gran % 90.7 H Lymph % (Auto) 1.7 L Gran # 16.8 H Lymph # 0.3 L [place] # 1.4 H PT 24.2 H INR 2.1 H Carbon Dioxide Anion Gap BUN 48 H Creatinine 1.8 H Glucose 164 H Phosphorus 2.6 L Total Bilirubin 1.1 H Lactate Dehydrogenase 315 H Triglycerides 330 H Mycoplasma pneumon IgG 03/06/17 03/06/17 03/06/17 04:09 04:09 04:09 WBC 22.8 H RBC 3.89 L Hgb 12.6 L Hct 36.9 L Gran % 93.2 H Lymph % (Auto) 1.4 L Gran # 21.3 H Lymph # 0.3 L [place] # 1.2 H PT 24.3 H INR 2.1 H Carbon Dioxide 21 L Anion Gap 17.0 H BUN 48 H Creatinine 1.8 H Glucose 192 H Phosphorus 2.5 L Total Bilirubin Lactate Dehydrogenase 274 H Triglycerides 283 H Mycoplasma pneumon IgG 03/05/17 03/05/17 03/05/17 16:42 16:42 04:15 WBC 23.1 H RBC 3.83 L Hgb 11.8 L Hct 36.9 L Gran % 91.7 H Lymph % (Auto) 1.1 L Gran # 21.2 H Lymph # 0.2 L [place] # 1.7 H PT INR Carbon Dioxide 19 L Anion Gap 19.0 H BUN 52 H 50 H Creatinine 1.9 H 2.0 H Glucose 187 H 186 H Phosphorus Total Bilirubin Lactate Dehydrogenase Triglycerides 355 H Mycoplasma pneumon IgG 03/05/17 03/05/17 03/04/17 04:15 04:15 16:25 WBC 28.4 H RBC 3.95 L Hgb 12.3 L Hct 38.1 L Gran % 92.6 H Lymph % (Auto) 1.2 L Gran # 26.3 H Lymph # 0.3 L [place] # 1.8 H PT 25.3 H INR 2.2 H Carbon Dioxide 18 L Anion Gap 21.0 H BUN 46 H Creatinine 2.0 H Glucose 178 H Phosphorus Total Bilirubin Lactate Dehydrogenase Triglycerides Mycoplasma pneumon IgG 03/02/17 21:20 WBC RBC Hgb Hct Gran % Lymph % (Auto) Gran # Lymph # [place] # PT INR Carbon Dioxide Anion Gap BUN Creatinine Glucose Phosphorus Total Bilirubin Lactate Dehydrogenase Triglycerides Mycoplasma pneumon IgG 3.82 A Meds: Medications Acetaminophen/Hydrocodone Bitart ([place] 5/325mg) 1 tab PO Q4HP PRN PRN Reason: Pain Albuterol/Ipratropium (Duoneb) 3 ml NEB Q4HRT [facility] Last Admin: 03/07/17 07:06 Dose: 3 ml Allopurinol (Zylopriim) 300 mg PO DAILY [facility] Last Admin: 03/06/17 08:30 Dose: Not Given Diagnostic Test (Pha) (Accu-Chek) 1 each FS Q6 [facility] Last Admin: 03/07/17 05:39 Dose: 1 each Famotidine (Pepcid) 20 mg IV Q12 [facility] Last Admin: 03/06/17 20:49 Dose: 20 mg Fluticasone Propionate (Flonase) 1 spray NS DAILY [facility] Last Admin: 03/06/17 08:30 Dose: Not Given Heparin Sodium (Porcine) (Heparin Flush) 2 ml IV Q12 [facility] Last Admin: 03/06/17 20:49 Dose: 2 ml Hydromorphone HCl (Dilaudid) 1 mg IV Q2HP PRN PRN Reason: Pain Last Admin: 03/07/17 07:03 Dose: 1 mg Piperacillin Sod/Tazobactam (Sod 3.375 gm/ Dextrose) 50 mls @ 100 mls/hr IV Q8H [facility] Last Infusion: 03/07/17 06:51 Dose: Infused Potassium Phosphate 20 meq/ (Dextrose) 254.5455 mls @ 127.273 mls/hr IV ONCE ONE Stop: 03/07/17 09:15 Lorazepam (Ativan) 0.5 mg IV Q4-6HP PRN PRN Reason: ANXIETY/SEDATION Last Admin: 03/04/17 03:45 Dose: 0.5 mg Magnesium Hydroxide (Milk Of Magnesia) 30 ml PO DAILYP PRN PRN Reason: Constipation Methylprednisolone Sodium Succinate (Solu-Medrol) 62.5 mg IV DAILY [facility] Last Admin: 03/06/17 08:34 Dose: 62.5 mg Metoprolol Tartrate (Lopressor) 10 mg IV Q6H [facility] Last Admin: 03/07/17 05:01 Dose: 10 mg Naloxone HCl (Narcan) 0.1 mg IV Q2MIN PRN PRN Reason: Opiate Reversal Ondansetron HCl (Zofran) 4 mg IV Q4HP PRN PRN Reason: Nausea And Vomiting Simvastatin (Zocor) 40 mg PO HS [facility] Last Admin: 03/06/17 20:49 Dose: Not Given Sodium Chloride (Saline Flush) 10 ml IV Q8 [facility] Last Admin: 03/07/17 05:33 Dose: 10 ml Sodium Chloride (Saline Flush) 10 ml IV UD PRN PRN Reason: FLUSH Medical - PN: A/P - Time Spent With Patient Total time spent is greater than 50% in coordination of care (as documented) at patient's floor/unit and/or counseling patient: Greater than 35 minutes - Narrative A/P Narrative: a/p Acute hypoxic Hypercapnic resp failure: Due to copd exacerbation, PNA ( elevated wbc, procalcitonin high), has remained off bipap, and maintaining oxygen saturations. WBC cont to improve Leukocytosis: Etiology likely pna, wbc improving, steroids also confounding. C diff neg 03/06. Encephalopathy: Likely delirium from acute illness. Co2 is normal, CT head negative, renal failure improving. Cont supportive measures. Trial of Tylenol. Avoid neuroactive meds as able. Pneumonia:Cultures neg, MRSA screen neg, off vanco. s/p azithro. Cont Zosyn (03/04 to current). WBC improving, COPD exacerbation: IV steroids, Duonebs q 4 hrs, off bipap now, keep on stand by Abdominal distention: Ileus, NPO , NG tube to wall suction. , DC soap suds enema. Schedule TN bisacodyl replace electrolytes. DC CT scan with current goals of care. Hypokalemia: Replace K today Hypomagnesemia: replaced Hypophosphatemia: replace today Atrial Flutter w RVR; s/p amio, dilt gtts. Cont on metoprolol. Seems to be 2/2 pain. IV Tylenol scheduled. PRN IV dilaudid Acute kidney injury: Creat is improved to 1.8, BUN down to 48, stable urine output, Nephrology following. Anticoagulation: On Coumadin, dose held, INR therapeutic, hold off on coumadin. Right hip fracture: Ortho following, will need medical stabilization before surgery is contemplated. D/W Dr. Tang 03/07. DVT : Last INR is 2.1 Diet cardiac, NPO Code/goals of care discussion: No code. Comfort measures if he decompensates. Spent 75 mins (700-745; 810-850) at the patient's bedside and then discussing goals of care with , Angelina, and brother, Prasad. They state Reynaldo would not want to be in a SNF for any significant amount of time and would not want aggressive measures if he could not be independent again. They relate that he has never liked hospitals after being in the hospital for 22 months for his h/o osteomyelitis as a child. Angelina is his surrogate MDM; they will let their children know of plan to transition to comfort measures in AM. If he acutely decompensates, transition immediately to comfort measures. Medical - PN: Qual - VTE Deep Vein Thrombosis/Pulmonary Embolism Present on Admission: No
[2017-03-07] MEDS ORDERED: ACETAMINOPHEN 1,000 MG/100 ML BOTTLE IV PRN ×2 (07:49→15:21)
[2017-03-07] MEDS: FAMOTIDINE/PF 20 MG/2 ML VIAL IV SCH (10:52)
[2017-03-07] MEDS: BISACODYL 10 MG SUPP.RECT PR SCH ×2 (10:52→12:13)
[2017-03-07] MEDS: methylPREDNISolone SOD SUCC 125 MG/2 ML VIAL IV SCH (10:52)
[2017-03-07] MEDS: FLUTICASONE PROPIONATE SPRAY.NAS NS SCH (10:53)
[2017-03-07] MEDS: ALLOPURINOL 300 MG TABLET PO SCH (10:53)
[2017-03-07] MEDS ORDERED: GLYCOPYRROLATE 0.2 MG/ML VIAL IV PRN ×2 (11:52→15:21)
[2017-03-07] MEDS ORDERED: ONDANSETRON 4 MG/2 ML VIAL IV PRN (15:21)
[2017-03-07] MEDS ORDERED: 0.9 % SODIUM CHLORIDE 10 ML SYRINGE IV PRN (15:21)
[2017-03-07] MEDS ORDERED: FAMOTIDINE/PF 20 MG/2 ML VIAL IV SCH (21:00)
[2017-03-08] MEDS: HYDROmorphone 2 MG/ML SYRINGE IV PRN ×2 (02:31→04:49)
[2017-03-08] MEDS: IPRATROPIUM/ALBUTEROL 3 ML AMPUL.NEB NEB SCH ×2 (03:20)
[2017-03-08] MEDS: METOPROLOL TARTRATE 5 MG/5 ML VIAL IV SCH (05:13)
[2017-03-08] MEDS: 0.9 % SODIUM CHLORIDE 10 ML SYRINGE IV SCH (05:40)
--- NOTE | 2017-03-08 06:19 | Death Note ---
Discharge Sum: Prov - Provider Patient information: Note initiated : 03/08/17 at 6:19 am Service Date, if different from initiated Date: [] Patient: Trey Stock 86 y/o M admitted on 03/02/17 for Right Hip Fracture, Fall. Chief Complaint: L hip fx Primary care physician: Dr. Shivam Priest Admitting clinician: Sanju Forman Attending physician on admission: Sanju Forman Pronouncing clinician: Keith Coronel Discharge Sum: Diag - PCOD Cause of : Septic shock Discharge Sum: Summary - Date and Time Date of admission: 03/02/17 19:55 Date of : 03/08/17 Time of : 05:50 - Summary Details: Mr. 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 The patient reports that he was changing a bin in his yard, likely moving it to the truck, when he slipped and fell. He was taken to the ER and was noted to have right femur fracture. The patient was then transported to the [facility] ER. His labs were reported to be unremarkable besides creat of 1.5, and HR 125 in flutter which was thought to be due to pain from the fracture. The patient was admitted to medical floors for further management. He was found to have acute hypoxic hypercapneic respiratory failure attributed to pneumonia and COPD exacerbation. He was admitted to the MICU on 03/02 for bipap treatment and started on steroids, vancomycin, cefepime and azithromycin. Vancomycin was discontinued after his MRSA swab was negative. Echo was suggestive of volume overload with suspected increased CVP. He developed oliguric renal failure with peak Cr of 2.0. Nephrology was consulted. Renal US was c/w CKD; no obstruction noted. His Cr and UOP slowly improved. He has had persistent a flutter with RVR that was responsive to IV Dilaudid. He has been trialed on diltiazem drip, amio bolus and drip and was transitioned / to IV metoprolol. The dose was increased to 10mg q 6 due to persistent RVR. He has received K and Phos replacement. His course has been further complicated by ileus--presumed 2/2 opiate use. NGT was placed 03/06 with some decompression noted on exam. He has had delirium, manifested primarily by somnolence and worsened by the opiates that are necessary for pain control of his hip and heart rate. His poor prognosis and goals of care were discussed with this , Angelina, and his brother, Prasad, and he was transitioned to comfort measures only on the morning of 03/07. He comfortably passed on 03/08. - Additional Data Confirmation of as documented by pronouncing clinician: no pulse, no respirations Family: contacted Attending physician: [f_Reg Attending Provider]
[2017-03-08] MEDS ORDERED: BISACODYL 10 MG SUPP.RECT PR SCH (09:00)
== END 2017-03-08 05:50 | disposition expired | DRG 535 ==
LOC: ED 18:32 → ICU 19:55
PROVIDERS: ADMIT Internal Medicine; ATTEND Internal Medicine